=== PATIENT | female | born 1950 | race African-American/Black ===

== ENCOUNTER → 2019-05-03 | Outpatient (CLI) | payer MEDICARE, MEDICAID | END | disposition home or self-care (01) | LOC: MRI 10:31 | DX: G31.89 Other specified degenerative diseases of nervous system (principal); R90.82 White matter disease, unspecified | CPT/HCPCS: 70551 ==

== ENCOUNTER 2020-02-10 21:48 | Inpatient (IN) | payer MEDICARE, MEDICAID ==
[~2020-02-10] VITALS: Ht 157.5 cm; Wt 125.3 kg
[2020-02-10] MEDS ORDERED: ONDANSETRON HCL 4MG/2ML INJ IV STA (22:20)
[2020-02-10] MEDS ORDERED: SODIUM CHLORIDE 0.9% 1,000 ML IV ONE (22:20)
[2020-02-10 22:42] LABS: BG BASE EXCESS 1.4 mmol/L (-2.0-2.0); BG CARBOXYHEMOGLOBIN 0.7 % (0.5-1.5); BG DEOXYHEMOGLOBIN 2.9 % (0.0-5.0); BG FRACTION INSPIRED OXYGEN 75; BG HCO3 ACT 30.4 mmol/L (22.0-26.0); BG METHEMOGLOBIN 0.3 % (0.0-1.5); BG OXYGEN SATURATION 97.1 % (92.0-98.5); BG OXYHEMOGLOBIN 96.1 % (94.0-97.0); BG PCO2 74.3 mmHg (35.0-45.0); BG PO2 106.1 mmHg (75.0-100.0); BG SAMPLE SITE RIGHT RADIAL; BG TOTAL HEMOGLOBIN 10.8 g/dL (12.0-18.0); BG VENT MODE PARTIAL NRB
[2020-02-10] MEDS ORDERED: PROPOFOL 10MG/ML 100ML 100 ML IV ONE (23:30)
[2020-02-10] MEDS ORDERED: VECURONIUM BROMIDE 10 MG/VIAL IV ONE (23:30)
[2020-02-10] MEDS ORDERED: ETOMIDATE 2MG/ML 10ML VIAL IV ONE (23:30)
[2020-02-10 23:39] LABS: BASOPHILS % 0.5 % (0.0-2.0); HEMATOCRIT. 31.9 % (36.0-48.0); HEMOGLOBIN. 10.3 g/dL (12.0-16.0); LYMPHOCYTES % 26.9 % (20.0-50.0); MEAN CORPUSCULAR HEMOGLOBIN 32.4 pg (28.0-32.0); MEAN CORPUSCULAR VOLUME 100.3 fL (81.0-99.0); MEAN PLATELET VOLUME 8.2 fl (7.4-10.4); MONOCYTES % 4.5 % (2.0-8.0); NEUTROPHILS % 67.1 % (40.0-76.0); PLATELET 274 x1000/uL (130-400); RED BLOOD CELL COUNT 3.18 mill/uL (4.2-5.4); RED CELL DISTRIBUTION WIDTH 16.5 % (11.6-14.6)
[2020-02-10 23:47] LABS: CHLORIDE 104 mEq/L (98-107)
[2020-02-11] MEDS ORDERED: KETAMINE HCL 50 MG/ML 10ML ONE (00:09)
[2020-02-11] MEDS ORDERED: ETOMIDATE 2MG/ML 10ML VIAL IV ONE (00:13)
[2020-02-11] MEDS ORDERED: VECURONIUM BROMIDE 10 MG/VIAL IV ONE (00:13)
[2020-02-11] MEDS ORDERED: ONDANSETRON HCL 4MG/2ML INJ IV STA (00:48)
[2020-02-11] MEDS ORDERED: AZITHROMYCIN 500 MG in DEXT 5% WATER 250 ML IV ONE (01:00)
[2020-02-11] MEDS ORDERED: CEFTRIAXONE 1 G PREMIX 50 ML IV ONE (01:00)
[2020-02-11] MEDS ORDERED: KETAMINE HCL 50 MG/ML 10ML IV ONE (01:00)
[2020-02-11 02:01] LABS: BG BASE EXCESS 1.4 mmol/L (-2.0-2.0); BG CARBOXYHEMOGLOBIN 0.2 % (0.5-1.5); BG DEOXYHEMOGLOBIN 1.5 % (0.0-5.0); BG FRACTION INSPIRED OXYGEN 100; BG HCO3 ACT 26.9 mmol/L (22.0-26.0); BG METHEMOGLOBIN 0.3 % (0.0-1.5); BG OXYGEN SATURATION 98.5 % (92.0-98.5); BG PCO2 46.7 mmHg (35.0-45.0); BG PH 7.379 (7.350-7.450); BG PO2 131.6 mmHg (75.0-100.0); BG SAMPLE SITE RIGHT RADIAL; BG TIDAL VOLUME(mL) 500 mL; BG TOTAL HEMOGLOBIN 11.9 g/dL (12.0-18.0); BG VENT MODE VENT - A/C; BG VENT RATE 16 set
[2020-02-11] MEDS ORDERED: PROPOFOL 10MG/ML 100ML 100 ML IV PRN (03:00)
[2020-02-11] MEDS ORDERED: PROPOFOL 10MG/ML 100ML 100 ML IV ONE (03:00)
[2020-02-11] MEDS ORDERED: ONDANSETRON HCL 4MG/2ML INJ IV PRN (08:45)
[2020-02-11] MEDS ORDERED: ACETAMINOPHEN 325MG TABLET PO PRN (08:45)
[2020-02-11 12:56] LABS: BASOPHILS % 0.6 % (0.0-2.0); HEMOGLOBIN. 10.1 g/dL (12.0-16.0); LYMPHOCYTES % 25.3 % (20.0-50.0); MEAN CORPUSCULAR HEMOGLOBIN 32.3 pg (28.0-32.0); MEAN CORPUSCULAR VOLUME 99.2 fL (81.0-99.0); MEAN PLATELET VOLUME 8.5 fl (7.4-10.4); MONOCYTES % 6.7 % (2.0-8.0); NEUTROPHILS % 65.4 % (40.0-76.0); PLATELET 221 x1000/uL (130-400); RED BLOOD CELL COUNT 3.13 mill/uL (4.2-5.4); RED CELL DISTRIBUTION WIDTH 16.6 % (11.6-14.6)
[2020-02-11 13:04] LABS: CHLORIDE 105 mEq/L (98-107)
[2020-02-11] MEDS: SODIUM CHLORIDE 0.9% 1,000 ML IV SCH (13:59)
[2020-02-11] MEDS ORDERED: ENOXAPARIN 40MG/0.4ML SYR SUBCUT SCH (14:00)
[2020-02-11] MEDS ORDERED: FUROSEMIDE 40MG/4ML VIAL IVP SCH (14:00)
[2020-02-11] MEDS: BLOOD SUGAR DIAGNOSTIC STRIP TEST SCH (20:14)
[2020-02-11] MEDS: INSULIN LISPRO 100 UNITS/ML SUBCUT SCH ×2 (20:15→21:00)
[2020-02-11] MEDS: DEXTROSE 50% WATER 50ML SYRINGE IV PRN (21:08)
[2020-02-11 21:28] LABS: CREATINE KINASE 40 IU/L (26-192)
[2020-02-11 21:29] LABS: CREATINE KINASE MB FRACTION < 1.0 ng/mL (0.5-3.6)
[2020-02-12] MEDS ORDERED: PROPOFOL 10MG/ML 100ML 100 ML IV PRN (03:45)
[2020-02-12] MEDS: DEXTROSE 50% WATER 50ML SYRINGE IV PRN (04:43)
[2020-02-12] MEDS: AZITHROMYCIN 500 MG in DEXT 5% WATER 250 ML IV SCH (04:59)
[2020-02-12] MEDS: INSULIN LISPRO 100 UNITS/ML SUBCUT SCH ×3 (08:20→17:11)
[2020-02-12] MEDS: BLOOD SUGAR DIAGNOSTIC STRIP TEST SCH ×3 (08:43→17:11)
[2020-02-12] MEDS: SODIUM CHLORIDE 0.9% 1,000 ML IV SCH (08:44)
[2020-02-12] MEDS ORDERED: CEFTRIAXONE 1 G PREMIX 50 ML IV SCH (09:00)
[2020-02-12 09:17] LABS: BASOPHILS % 0.7 % (0.0-2.0); EOSINOPHILS % 4.3 % (0.0-5.0); HEMATOCRIT. 29.9 % (36.0-48.0); HEMOGLOBIN. 10.1 g/dL (12.0-16.0); LYMPHOCYTES % 17.8 % (20.0-50.0); MEAN CORPUSCULAR HEMOGLOBIN 32.9 pg (28.0-32.0); MEAN CORPUSCULAR VOLUME 97.9 fL (81.0-99.0); MEAN PLATELET VOLUME 8.7 fl (7.4-10.4); MONOCYTES % 4.5 % (2.0-8.0); NEUTROPHILS % 72.7 % (40.0-76.0); PLATELET 242 x1000/uL (130-400); RED BLOOD CELL COUNT 3.05 mill/uL (4.2-5.4)
[2020-02-12] MEDS ORDERED: ENOXAPARIN 120MG/0.8ML SYR SUBCUT NR (15:00)
[2020-02-13] VITALS (23 sets, daily range): BP systolic 95–137; BP diastolic 40–79
[2020-02-13] MEDS ORDERED: NOREPINEPHRINE 4MG/250ML PMX 250 ML IV ONE (00:27)
[2020-02-13] MEDS: BLOOD SUGAR DIAGNOSTIC STRIP TEST SCH ×6 (03:27→21:00)
[2020-02-13 05:31] LABS: BASOPHILS % 0.8 % (0.0-2.0); EOSINOPHILS % 3.9 % (0.0-5.0); HEMATOCRIT. 30.3 % (36.0-48.0); HEMOGLOBIN. 9.9 g/dL (12.0-16.0); LYMPHOCYTES % 17.3 % (20.0-50.0); MEAN CORPUSCULAR HEMOGLOBIN 32.3 pg (28.0-32.0); MEAN CORPUSCULAR VOLUME 98.6 fL (81.0-99.0); MEAN PLATELET VOLUME 8.8 fl (7.4-10.4); MONOCYTES % 3.9 % (2.0-8.0); NEUTROPHILS % 74.1 % (40.0-76.0); PLATELET 252 x1000/uL (130-400); RED BLOOD CELL COUNT 3.07 mill/uL (4.2-5.4); RED CELL DISTRIBUTION WIDTH 16.3 % (11.6-14.6)
[2020-02-13 05:36] LABS: PROTHROMBIN TIME 10.7 sec (9.6-11.0)
[2020-02-13] MEDS: AZITHROMYCIN 500 MG in DEXT 5% WATER 250 ML IV SCH (05:41)
[2020-02-13] MEDS ORDERED: CEFTRIAXONE 1 G PREMIX 50 ML IV SCH (09:00)
[2020-02-13] MEDS ORDERED: CEFTRIAXONE 1 G PREMIX 50 ML IV ONE (09:00)
[2020-02-13] MEDS: PROPOFOL 10MG/ML 100ML 100 ML IV PRN ×4 (09:21→20:20)
[2020-02-13] MEDS: INSULIN LISPRO 100 UNITS/ML SUBCUT SCH ×5 (10:00→21:00)
[2020-02-13] MEDS: SODIUM CHLORIDE 0.9% 1,000 ML IV SCH (10:00)
[2020-02-13 11:53] LABS: CLARITY URINE TURBID (CLEAR); COLOR URINE YELLOW (YELLOW); KETONES URINE TRACE (NEGATIVE); LEUKOCYTE ESTERASE URINE 3+ (NEGATIVE); NITRITE URINE NEGATIVE (NEGATIVE); OCCULT BLOOD URINE 1+ (NEGATIVE); PROTEIN URINE 2+ (NEGATIVE); SPECIFIC GRAVITY URINE 1.014 (1.005-1.030)
[2020-02-13] MEDS ORDERED: ENOXAPARIN 120MG/0.8ML SYR SUBCUT SCH (16:00)
[2020-02-13] MEDS: ENOXAPARIN 40MG/0.4ML SYR SUBCUT SCH (18:24)
[2020-02-14] VITALS (78 sets, daily range): BP systolic 109–157; BP diastolic 49–98
[2020-02-14] MEDS: PROPOFOL 10MG/ML 100ML 100 ML IV PRN ×5 (00:28→22:10)
[2020-02-14] MEDS: SODIUM CHLORIDE 0.9% 1,000 ML IV SCH ×2 (02:00→21:28)
[2020-02-14] MEDS ORDERED: INSULIN LISPRO 100 UNITS/ML SUBCUT SCH (08:00)
[2020-02-14] MEDS ORDERED: BLOOD SUGAR DIAGNOSTIC STRIP TEST SCH (08:00)
[2020-02-14] MEDS: IPRATROPIUM/ALBUTEROL 0.5-3(2.5)MG/3ML NEB NEB PRN ×2 (08:03→13:22)
[2020-02-14 08:41] LABS: BG BASE EXCESS -4.1 mmol/L (-2.0-2.0); BG DEOXYHEMOGLOBIN 1.4 % (0.0-5.0); BG FRACTION INSPIRED OXYGEN 80; BG HCO3 ACT 22.3 mmol/L (22.0-26.0); BG METHEMOGLOBIN 0.3 % (0.0-1.5); BG OXYGEN SATURATION 98.6 % (92.0-98.5); BG OXYHEMOGLOBIN 98.3 % (94.0-97.0); BG PH 7.294 (7.350-7.450); BG PO2 144.3 mmHg (75.0-100.0); BG SAMPLE SITE LEFT BRACHIAL; BG TIDAL VOLUME(mL) 500 mL; BG TOTAL HEMOGLOBIN 9.8 g/dL (12.0-18.0); BG VENT MODE VENT - A/C; BG VENT RATE 16 set
[2020-02-14 09:30] LABS: BASOPHILS % 0.7 % (0.0-2.0); EOSINOPHILS % 5.1 % (0.0-5.0); HEMATOCRIT. 28.4 % (36.0-48.0); HEMOGLOBIN. 9.3 g/dL (12.0-16.0); LYMPHOCYTES % 15.8 % (20.0-50.0); MEAN CORPUSCULAR HEMOGLOBIN 32.3 pg (28.0-32.0); MEAN CORPUSCULAR VOLUME 98.8 fL (81.0-99.0); MEAN PLATELET VOLUME 8.6 fl (7.4-10.4); MONOCYTES % 5.6 % (2.0-8.0); NEUTROPHILS % 72.8 % (40.0-76.0); PLATELET 236 x1000/uL (130-400); RED BLOOD CELL COUNT 2.87 mill/uL (4.2-5.4); RED CELL DISTRIBUTION WIDTH 16.2 % (11.6-14.6)
[2020-02-14] MEDS: AZITHROMYCIN 500 MG in DEXT 5% WATER 250 ML IV SCH (09:53)
[2020-02-14] MEDS ORDERED: LIDOCAINE HCL/PF 1% 2ML VIAL ONE (09:53)
[2020-02-14] MEDS: ENOXAPARIN 40MG/0.4ML SYR SUBCUT SCH (09:54)
[2020-02-14 10:20] LABS: BG BASE EXCESS -5.4 mmol/L (-2.0-2.0); BG CARBOXYHEMOGLOBIN 0.3 % (0.5-1.5); BG DEOXYHEMOGLOBIN 1.2 % (0.0-5.0); BG METHEMOGLOBIN 0.1 % (0.0-1.5); BG OXYGEN SATURATION 98.8 % (92.0-98.5); BG OXYHEMOGLOBIN 98.4 % (94.0-97.0); BG PCO2 38.3 mmHg (35.0-45.0); BG PH 7.335 (7.350-7.450); BG PO2 156.2 mmHg (75.0-100.0); BG SAMPLE SITE RIGHT RADIAL; BG TIDAL VOLUME(mL) 550 mL; BG TOTAL HEMOGLOBIN 10.2 g/dL (12.0-18.0); BG VENT MODE VENT - A/C; BG VENT RATE 20 set
[2020-02-14] MEDS ORDERED: SODIUM POLYSTYRENE SULFONATE 15 G/60 ML BOT PO NR (11:00)
[2020-02-14] MEDS: BLOOD SUGAR DIAGNOSTIC STRIP TEST SCH ×3 (11:34→23:28)
[2020-02-14] MEDS: INSULIN LISPRO 100 UNITS/ML SUBCUT SCH ×3 (11:34→23:28)
[2020-02-14] MEDS: CITRIC ACID/SODIUM CITRATE SOLN 30ML UDC PO SCH ×2 (12:52→18:23)
[2020-02-14] MEDS: CEFTRIAXONE 1 G PREMIX 50 ML IV SCH (12:52)
[2020-02-14] MEDS ORDERED: FUROSEMIDE 40MG/4ML VIAL IVP NR (18:00)
[2020-02-14] MEDS ORDERED: METHYLPREDNISOLONE SOD SUCC 125 MG/2 ML VIAL IV NR (18:00)
[2020-02-14] MEDS: PANTOPRAZOLE SODIUM 40 MG/VIAL IV SCH (21:28)
[2020-02-15] VITALS (46 sets, daily range): BP systolic 123–169; BP diastolic 50–89
[2020-02-15] MEDS: PROPOFOL 10MG/ML 100ML 100 ML IV PRN ×7 (01:00→21:49)
[2020-02-15] MEDS: METHYLPREDNISOLONE SOD SUCC 40 MG/ML VIAL IV SCH ×3 (02:04→17:25)
[2020-02-15] MEDS: IPRATROPIUM/ALBUTEROL 0.5-3(2.5)MG/3ML NEB NEB PRN ×3 (04:25→14:30)
[2020-02-15] MEDS: BLOOD SUGAR DIAGNOSTIC STRIP TEST SCH ×4 (05:05→23:38)
[2020-02-15] MEDS: INSULIN LISPRO 100 UNITS/ML SUBCUT SCH ×4 (06:00→23:40)
[2020-02-15 06:07] LABS: BASOPHILS % 0.3 % (0.0-2.0); HEMATOCRIT. 28.1 % (36.0-48.0); HEMOGLOBIN. 9.4 g/dL (12.0-16.0); LYMPHOCYTES % 9.4 % (20.0-50.0); MEAN CORPUSCULAR HEMOGLOBIN 32.5 pg (28.0-32.0); MEAN CORPUSCULAR VOLUME 97.5 fL (81.0-99.0); MEAN PLATELET VOLUME 9.2 fl (7.4-10.4); MONOCYTES % 0.6 % (2.0-8.0); NEUTROPHILS % 89.7 % (40.0-76.0); PLATELET 240 x1000/uL (130-400); RED BLOOD CELL COUNT 2.88 mill/uL (4.2-5.4)
[2020-02-15] MEDS: PANTOPRAZOLE SODIUM 40 MG/VIAL IV SCH (09:11)
[2020-02-15] MEDS: ENOXAPARIN 40MG/0.4ML SYR SUBCUT SCH (09:11)
[2020-02-15] MEDS: CITRIC ACID/SODIUM CITRATE SOLN 30ML UDC PO SCH (09:11)
[2020-02-15 09:15] LABS: BG BASE EXCESS -3.4 mmol/L (-2.0-2.0); BG CARBOXYHEMOGLOBIN 0.4 % (0.5-1.5); BG DEOXYHEMOGLOBIN 3.5 % (0.0-5.0); BG FRACTION INSPIRED OXYGEN 50; BG HCO3 ACT 21.4 mmol/L (22.0-26.0); BG METHEMOGLOBIN 0.3 % (0.0-1.5); BG OXYGEN SATURATION 96.5 % (92.0-98.5); BG OXYHEMOGLOBIN 95.8 % (94.0-97.0); BG PCO2 37.2 mmHg (35.0-45.0); BG PH 7.377 (7.350-7.450); BG PO2 86.8 mmHg (75.0-100.0); BG SAMPLE SITE RIGHT RADIAL; BG TIDAL VOLUME(mL) 550 mL; BG TOTAL HEMOGLOBIN 9.9 g/dL (12.0-18.0); BG VENT MODE VENT - A/C; BG VENT RATE 20 set
[2020-02-15] MEDS: AZITHROMYCIN 500 MG in DEXT 5% WATER 250 ML IV SCH (09:16)
[2020-02-15] MEDS: CEFTRIAXONE 1 G PREMIX 50 ML IV SCH (11:00)
[2020-02-15] MEDS ORDERED: FUROSEMIDE 40MG/4ML VIAL IVP NR (18:00)
[2020-02-16] VITALS (47 sets, daily range): BP systolic 129–165; BP diastolic 62–112
[2020-02-16] MEDS: HYDRALAZINE 20MG/ML VIAL IV PRN ×2 (00:28→11:17)
[2020-02-16] MEDS: IPRATROPIUM/ALBUTEROL 0.5-3(2.5)MG/3ML NEB NEB PRN (00:44)
[2020-02-16] MEDS: PROPOFOL 10MG/ML 100ML 100 ML IV PRN ×5 (00:54→10:59)
[2020-02-16] MEDS: METHYLPREDNISOLONE SOD SUCC 40 MG/ML VIAL IV SCH ×3 (01:42→17:21)
[2020-02-16] MEDS: BLOOD SUGAR DIAGNOSTIC STRIP TEST SCH ×4 (05:17→23:19)
[2020-02-16] MEDS: INSULIN LISPRO 100 UNITS/ML SUBCUT SCH ×4 (05:18→23:20)
[2020-02-16 06:24] LABS: BASOPHILS % 0.2 % (0.0-2.0); HEMATOCRIT. 26.9 % (36.0-48.0); HEMOGLOBIN. 9.1 g/dL (12.0-16.0); LYMPHOCYTES % 10.4 % (20.0-50.0); MEAN CORPUSCULAR HEMOGLOBIN 32.8 pg (28.0-32.0); NEUTROPHILS % 86.4 % (40.0-76.0); PLATELET 252 x1000/uL (130-400); RED BLOOD CELL COUNT 2.77 mill/uL (4.2-5.4); RED CELL DISTRIBUTION WIDTH 16.6 % (11.6-14.6)
[2020-02-16] MEDS ORDERED: POTASSIUM CHLORIDE 20MEQ/PACKET GT SCH (08:00)
[2020-02-16] MEDS: AZITHROMYCIN 500 MG in DEXT 5% WATER 250 ML IV SCH (08:59)
[2020-02-16] MEDS: PANTOPRAZOLE SODIUM 40 MG/VIAL IV SCH (08:59)
[2020-02-16] MEDS: ENOXAPARIN 40MG/0.4ML SYR SUBCUT SCH (08:59)
[2020-02-16] MEDS: CEFTRIAXONE 1 G PREMIX 50 ML IV SCH (10:44)
[2020-02-16] MEDS: HALOPERIDOL LACTATE 5MG/ML VIAL IM PRN ×2 (13:16→23:20)
[2020-02-16 16:04] LABS: BG CARBOXYHEMOGLOBIN 0.3 % (0.5-1.5); BG DEOXYHEMOGLOBIN 6.9 % (0.0-5.0); BG FRACTION INSPIRED OXYGEN 40; BG HCO3 ACT 22.8 mmol/L (22.0-26.0); BG METHEMOGLOBIN 0.4 % (0.0-1.5); BG OXYGEN SATURATION 93.1 % (92.0-98.5); BG OXYHEMOGLOBIN 92.4 % (94.0-97.0); BG PH 7.332 (7.350-7.450); BG PO2 75.3 mmHg (75.0-100.0); BG PRESSURE SUPPORT 10; BG SAMPLE SITE RIGHT RADIAL; BG TOTAL HEMOGLOBIN 10.8 g/dL (12.0-18.0); BG VENT MODE VENT - CPAP
[2020-02-16] MEDS ORDERED: FUROSEMIDE 40MG/4ML VIAL IVP NR (16:45)
[2020-02-17] VITALS (48 sets, daily range): BP systolic 139–199; BP diastolic 67–99
[2020-02-17] MEDS: METHYLPREDNISOLONE SOD SUCC 40 MG/ML VIAL IV SCH ×3 (01:16→17:44)
[2020-02-17] MEDS: HYDRALAZINE 20MG/ML VIAL IV PRN ×3 (01:16→15:20)
[2020-02-17] MEDS: BLOOD SUGAR DIAGNOSTIC STRIP TEST SCH ×3 (05:10→17:05)
[2020-02-17] MEDS: INSULIN LISPRO 100 UNITS/ML SUBCUT SCH ×3 (05:17→17:46)
[2020-02-17 05:40] LABS: BASOPHILS % 0.1 % (0.0-2.0); HEMATOCRIT. 26.2 % (36.0-48.0); HEMOGLOBIN. 8.7 g/dL (12.0-16.0); MEAN CORPUSCULAR HEMOGLOBIN 32.5 pg (28.0-32.0); MEAN CORPUSCULAR VOLUME 97.5 fL (81.0-99.0); MONOCYTES % 2.6 % (2.0-8.0); NEUTROPHILS % 87.3 % (40.0-76.0); PLATELET 256 x1000/uL (130-400); RED BLOOD CELL COUNT 2.69 mill/uL (4.2-5.4); RED CELL DISTRIBUTION WIDTH 16.7 % (11.6-14.6)
[2020-02-17 08:04] LABS: BG BASE EXCESS -1.5 mmol/L (-2.0-2.0); BG CARBOXYHEMOGLOBIN 0.3 % (0.5-1.5); BG DEOXYHEMOGLOBIN 2.9 % (0.0-5.0); BG FRACTION INSPIRED OXYGEN 40; BG HCO3 ACT 22.4 mmol/L (22.0-26.0); BG METHEMOGLOBIN 0.2 % (0.0-1.5); BG OXYGEN SATURATION 97.1 % (92.0-98.5); BG OXYHEMOGLOBIN 96.6 % (94.0-97.0); BG PCO2 34.6 mmHg (35.0-45.0); BG PH 7.429 (7.350-7.450); BG PO2 93.9 mmHg (75.0-100.0); BG PRESSURE SUPPORT 10; BG SAMPLE SITE RIGHT RADIAL; BG TIDAL VOLUME(mL) 550 mL; BG TOTAL HEMOGLOBIN 9.5 g/dL (12.0-18.0); BG VENT MODE VENT - SIMV; BG VENT RATE 14 set
[2020-02-17] MEDS: PANTOPRAZOLE SODIUM 40 MG/VIAL IV SCH (08:51)
[2020-02-17] MEDS: ENOXAPARIN 40MG/0.4ML SYR SUBCUT SCH (08:51)
[2020-02-17] MEDS ORDERED: LOSARTAN POTASSIUM 50 MG TABLET PO SCH (09:00)
[2020-02-17] MEDS: AZITHROMYCIN 500 MG in DEXT 5% WATER 250 ML IV SCH (10:39)
[2020-02-17] MEDS: IPRATROPIUM/ALBUTEROL 0.5-3(2.5)MG/3ML NEB NEB PRN ×2 (12:19→16:16)
[2020-02-17] MEDS: HALOPERIDOL LACTATE 5MG/ML VIAL IM PRN (13:16)
[2020-02-17] MEDS ORDERED: HYDRALAZINE HCL 50MG TABLET PO SCH (14:16)
[2020-02-17] MEDS ORDERED: CLONIDINE 0.1MG TABLET PO NR (17:15)
[2020-02-17 17:52] LABS: BG BASE EXCESS -2.9 mmol/L (-2.0-2.0); BG CARBOXYHEMOGLOBIN 0.6 % (0.5-1.5); BG DEOXYHEMOGLOBIN 6.4 % (0.0-5.0); BG FRACTION INSPIRED OXYGEN 40; BG HCO3 ACT 22.1 mmol/L (22.0-26.0); BG METHEMOGLOBIN 0.8 % (0.0-1.5); BG OXYHEMOGLOBIN 92.2 % (94.0-97.0); BG PCO2 39.7 mmHg (35.0-45.0); BG PH 7.364 (7.350-7.450); BG PO2 73.7 mmHg (75.0-100.0); BG PRESSURE SUPPORT 8; BG SAMPLE SITE RIGHT RADIAL; BG TOTAL HEMOGLOBIN 9.4 g/dL (12.0-18.0); BG VENT MODE VENT - CPAP
[2020-02-17] MEDS: CLONIDINE 0.1MG TABLET PO SCH (21:11)
[2020-02-17] MEDS: HYDRALAZINE HCL 100MG TABLET PO SCH (21:11)
[2020-02-17] MEDS: AMLODIPINE 5MG TABLET PO SCH (21:11)
[2020-02-18] VITALS (47 sets, daily range): BP systolic 115–180; BP diastolic 32–114
[2020-02-18] MEDS: BLOOD SUGAR DIAGNOSTIC STRIP TEST SCH ×4 (00:24→17:38)
[2020-02-18] MEDS: INSULIN LISPRO 100 UNITS/ML SUBCUT SCH ×4 (00:29→17:58)
[2020-02-18] MEDS: CLONIDINE 0.1MG TABLET PO SCH (05:42)
[2020-02-18 06:26] LABS: HEMATOCRIT. 27.1 % (36.0-48.0); HEMOGLOBIN. 9.1 g/dL (12.0-16.0); MEAN CORPUSCULAR HEMOGLOBIN 32.4 pg (28.0-32.0); MEAN CORPUSCULAR VOLUME 97.1 fL (81.0-99.0); MEAN PLATELET VOLUME 8.9 fl (7.4-10.4); PLATELET 244 x1000/uL (130-400); RED CELL DISTRIBUTION WIDTH 16.6 % (11.6-14.6)
[2020-02-18] MEDS: IPRATROPIUM/ALBUTEROL 0.5-3(2.5)MG/3ML NEB NEB PRN ×4 (08:14→21:31)
[2020-02-18] MEDS ORDERED: FUROSEMIDE 40MG/4ML VIAL IVP NR (08:30)
[2020-02-18] MEDS: AMLODIPINE 5MG TABLET PO SCH ×2 (09:25→20:41)
[2020-02-18] MEDS: PANTOPRAZOLE SODIUM 40 MG/VIAL IV SCH (09:26)
[2020-02-18] MEDS: ENOXAPARIN 40MG/0.4ML SYR SUBCUT SCH (09:26)
[2020-02-18] MEDS: HYDRALAZINE HCL 100MG TABLET PO SCH ×3 (09:28→21:49)
[2020-02-18 09:44] LABS: BG BASE EXCESS 0.4 mmol/L (-2.0-2.0); BG CARBOXYHEMOGLOBIN 0.3 % (0.5-1.5); BG DEOXYHEMOGLOBIN 3.8 % (0.0-5.0); BG FRACTION INSPIRED OXYGEN 45; BG HCO3 ACT 26.1 mmol/L (22.0-26.0); BG METHEMOGLOBIN 0.1 % (0.0-1.5); BG OXYGEN SATURATION 96.2 % (92.0-98.5); BG OXYHEMOGLOBIN 95.8 % (94.0-97.0); BG PCO2 46.9 mmHg (35.0-45.0); BG PH 7.363 (7.350-7.450); BG PO2 89.1 mmHg (75.0-100.0); BG PRESSURE SUPPORT 8; BG SAMPLE SITE RIGHT RADIAL; BG TOTAL HEMOGLOBIN 9.5 g/dL (12.0-18.0); BG VENT MODE VENT - CPAP
[2020-02-18] MEDS: CLONIDINE 0.2MG TABLET PO SCH ×2 (13:23→19:42)
[2020-02-18 13:54] LABS: PLATELET ESTIMATE NORMAL
[2020-02-18] MEDS ORDERED: AMIODARONE HCL 150 MG in DEXT 5% WATER 100 ML IV NR (20:15)
[2020-02-18] MEDS ORDERED: DIGOXIN 500MCG/2ML AMP IV NR (20:30)
[2020-02-18] MEDS ORDERED: DIGOXIN 500MCG/2ML AMP IV ONE (21:00)
[2020-02-18] MEDS: AMIODARONE HCL 900 MG in DEXT 5% WATER 482 ML IV PRN (21:51)
[2020-02-18] MEDS: HALOPERIDOL LACTATE 5MG/ML VIAL IM PRN (22:33)
[2020-02-18] MEDS ORDERED: DEXT 5%/0.45% NACL 1000ML 1,000 ML IV SCH (23:30)
[2020-02-19] VITALS (55 sets, daily range): BP systolic 124–204; BP diastolic 53–112
[2020-02-19] MEDS: HYDRALAZINE 20MG/ML VIAL IV PRN ×2 (00:14→10:12)
[2020-02-19] MEDS ORDERED: DIGOXIN 500MCG/2ML AMP IV ONE (00:30)
[2020-02-19 04:59] LABS: BASOPHILS % 0.1 % (0.0-2.0); EOSINOPHILS % 0.1 % (0.0-5.0); HEMATOCRIT. 29.4 % (36.0-48.0); HEMOGLOBIN. 9.8 g/dL (12.0-16.0); LYMPHOCYTES % 13.1 % (20.0-50.0); MEAN CORPUSCULAR HEMOGLOBIN 32.7 pg (28.0-32.0); MEAN CORPUSCULAR VOLUME 98.5 fL (81.0-99.0); MEAN PLATELET VOLUME 8.6 fl (7.4-10.4); MONOCYTES % 2.9 % (2.0-8.0); NEUTROPHILS % 83.8 % (40.0-76.0); PLATELET 237 x1000/uL (130-400); RED BLOOD CELL COUNT 2.98 mill/uL (4.2-5.4); RED CELL DISTRIBUTION WIDTH 16.6 % (11.6-14.6)
[2020-02-19 05:21] LABS: PHOSPHORUS 4.5 mg/dL (2.5-4.9)
[2020-02-19] MEDS: CLONIDINE 0.2MG TABLET PO SCH ×3 (05:39→21:42)
[2020-02-19] MEDS: BLOOD SUGAR DIAGNOSTIC STRIP TEST SCH ×6 (05:39→20:21)
[2020-02-19] MEDS: HYDRALAZINE HCL 100MG TABLET PO SCH ×3 (05:39→20:22)
[2020-02-19] MEDS: INSULIN LISPRO 100 UNITS/ML SUBCUT SCH ×6 (05:48→20:21)
[2020-02-19] MEDS ORDERED: FUROSEMIDE 40MG/4ML VIAL IV SCH (08:30)
[2020-02-19] MEDS: IPRATROPIUM/ALBUTEROL 0.5-3(2.5)MG/3ML NEB NEB PRN ×3 (09:09→17:34)
[2020-02-19] MEDS: ENOXAPARIN 40MG/0.4ML SYR SUBCUT SCH (09:14)
[2020-02-19] MEDS: AMLODIPINE 5MG TABLET PO SCH ×2 (09:14→20:22)
[2020-02-19] MEDS: PANTOPRAZOLE SODIUM 40 MG/VIAL IV SCH (09:16)
[2020-02-19] MEDS: METHYLPREDNISOLONE SOD SUCC 40 MG/ML VIAL IV SCH (17:22)
[2020-02-19] MEDS: IPRATROPIUM BROMIDE (0.02%) 0.5MG/2.5ML NEB HHN SCH (20:30)
[2020-02-19] MEDS: AMIODARONE HCL 900 MG in DEXT 5% WATER 482 ML IV PRN (21:41)
[2020-02-19] MEDS ORDERED: ACETYLCYSTEINE 100MG/ML 10% VIAL 4ML INH SCH (22:00)
[2020-02-20] VITALS (54 sets, daily range): BP systolic 108–211; BP diastolic 56–105
[2020-02-20] MEDS: ACETYLCYSTEINE 200MG/ML 20% VIAL 4ML INH SCH ×3 (00:30→16:06)
[2020-02-20] MEDS: IPRATROPIUM BROMIDE (0.02%) 0.5MG/2.5ML NEB HHN SCH ×6 (00:30→20:14)
[2020-02-20] MEDS: METHYLPREDNISOLONE SOD SUCC 40 MG/ML VIAL IV SCH ×3 (01:01→17:50)
[2020-02-20] MEDS: HYDRALAZINE 20MG/ML VIAL IV PRN ×2 (01:02→09:36)
[2020-02-20] MEDS: IPRATROPIUM/ALBUTEROL 0.5-3(2.5)MG/3ML NEB NEB PRN (02:01)
[2020-02-20 05:41] LABS: BASOPHILS % 0.1 % (0.0-2.0); HEMOGLOBIN. 9.9 g/dL (12.0-16.0); LYMPHOCYTES % 12.1 % (20.0-50.0); MEAN CORPUSCULAR HEMOGLOBIN 32.4 pg (28.0-32.0); MEAN CORPUSCULAR VOLUME 98.6 fL (81.0-99.0); MEAN PLATELET VOLUME 8.9 fl (7.4-10.4); MONOCYTES % 1.3 % (2.0-8.0); NEUTROPHILS % 86.5 % (40.0-76.0); PLATELET 217 x1000/uL (130-400); RED BLOOD CELL COUNT 3.05 mill/uL (4.2-5.4); RED CELL DISTRIBUTION WIDTH 16.5 % (11.6-14.6)
[2020-02-20] MEDS: HYDRALAZINE HCL 100MG TABLET PO SCH ×3 (06:25→23:11)
[2020-02-20] MEDS: CLONIDINE 0.2MG TABLET PO SCH ×3 (06:25→22:00)
[2020-02-20] MEDS: BLOOD SUGAR DIAGNOSTIC STRIP TEST SCH ×4 (08:28→21:15)
[2020-02-20] MEDS: PANTOPRAZOLE SODIUM 40 MG/VIAL IV SCH (09:36)
[2020-02-20] MEDS: AMLODIPINE 5MG TABLET PO SCH ×2 (09:36→21:14)
[2020-02-20] MEDS: ENOXAPARIN 40MG/0.4ML SYR SUBCUT SCH (09:37)
[2020-02-20] MEDS: INSULIN LISPRO 100 UNITS/ML SUBCUT SCH ×4 (09:38→21:15)
[2020-02-20] MEDS: MINOXIDIL 2.5MG TABLET PO SCH (12:24)
[2020-02-20] MEDS ORDERED: FUROSEMIDE 40MG/4ML VIAL IVP NR (21:00)
[2020-02-21] VITALS (47 sets, daily range): BP systolic 103–162; BP diastolic 52–78
[2020-02-21] MEDS: IPRATROPIUM BROMIDE (0.02%) 0.5MG/2.5ML NEB HHN SCH ×6 (00:13→20:24)
[2020-02-21] MEDS: ACETYLCYSTEINE 200MG/ML 20% VIAL 4ML INH SCH ×2 (00:13→15:17)
[2020-02-21] MEDS: METHYLPREDNISOLONE SOD SUCC 40 MG/ML VIAL IV SCH ×2 (01:59→08:49)
[2020-02-21] MEDS: AMIODARONE HCL 900 MG in DEXT 5% WATER 482 ML IV PRN (04:02)
[2020-02-21] MEDS: CLONIDINE 0.2MG TABLET PO SCH ×3 (05:46→22:41)
[2020-02-21] MEDS: HYDRALAZINE HCL 100MG TABLET PO SCH ×3 (05:46→22:41)
[2020-02-21 05:49] LABS: BASOPHILS % 0.3 % (0.0-2.0); HEMATOCRIT. 29.6 % (36.0-48.0); HEMOGLOBIN. 9.7 g/dL (12.0-16.0); LYMPHOCYTES % 14.5 % (20.0-50.0); MEAN CORPUSCULAR HEMOGLOBIN 32.3 pg (28.0-32.0); MEAN CORPUSCULAR VOLUME 98.8 fL (81.0-99.0); MEAN PLATELET VOLUME 8.9 fl (7.4-10.4); MONOCYTES % 1.9 % (2.0-8.0); NEUTROPHILS % 83.3 % (40.0-76.0); PLATELET 222 x1000/uL (130-400); RED CELL DISTRIBUTION WIDTH 16.4 % (11.6-14.6)
[2020-02-21] MEDS: PANTOPRAZOLE SODIUM 40 MG/VIAL IV SCH (08:47)
[2020-02-21] MEDS: BLOOD SUGAR DIAGNOSTIC STRIP TEST SCH ×4 (08:47→20:51)
[2020-02-21] MEDS: MINOXIDIL 2.5MG TABLET PO SCH (08:47)
[2020-02-21] MEDS: ENOXAPARIN 40MG/0.4ML SYR SUBCUT SCH (08:48)
[2020-02-21] MEDS: AMLODIPINE 5MG TABLET PO SCH ×2 (09:00→20:51)
[2020-02-21] MEDS: INSULIN LISPRO 100 UNITS/ML SUBCUT SCH ×4 (09:06→21:05)
[2020-02-22] VITALS (79 sets, daily range): BP systolic 104–162; BP diastolic 37–84
[2020-02-22] MEDS: IPRATROPIUM BROMIDE (0.02%) 0.5MG/2.5ML NEB HHN SCH ×6 (00:39→16:16)
[2020-02-22] MEDS: ACETYLCYSTEINE 200MG/ML 20% VIAL 4ML INH SCH ×4 (00:40→23:35)
[2020-02-22] MEDS: HYDRALAZINE HCL 100MG TABLET PO SCH ×3 (05:02→21:51)
[2020-02-22] MEDS: CLONIDINE 0.2MG TABLET PO SCH ×3 (05:03→22:00)
[2020-02-22 05:51] LABS: HEMATOCRIT. 28.1 % (36.0-48.0); HEMOGLOBIN. 9.2 g/dL (12.0-16.0); MEAN CORPUSCULAR HEMOGLOBIN 31.9 pg (28.0-32.0); MEAN CORPUSCULAR VOLUME 97.9 fL (81.0-99.0); MEAN PLATELET VOLUME 9.7 fl (7.4-10.4); RED BLOOD CELL COUNT 2.87 mill/uL (4.2-5.4); RED CELL DISTRIBUTION WIDTH 16.3 % (11.6-14.6)
[2020-02-22] MEDS: BLOOD SUGAR DIAGNOSTIC STRIP TEST SCH ×4 (07:50→21:44)
[2020-02-22] MEDS: AMLODIPINE 5MG TABLET PO SCH ×2 (09:31→21:51)
[2020-02-22] MEDS: MINOXIDIL 2.5MG TABLET PO SCH (09:31)
[2020-02-22] MEDS: ENOXAPARIN 40MG/0.4ML SYR SUBCUT SCH (09:31)
[2020-02-22] MEDS: PANTOPRAZOLE SODIUM 40 MG/VIAL IV SCH (09:31)
[2020-02-22] MEDS: INSULIN LISPRO 100 UNITS/ML SUBCUT SCH ×4 (09:32→22:12)
[2020-02-22] MEDS: AMIODARONE HCL 900 MG in DEXT 5% WATER 482 ML IV PRN (09:33)
[2020-02-22] MEDS: SODIUM CHLORIDE 0.45% 1,000 ML IV SCH (09:57)
[2020-02-22] MEDS ORDERED: SODIUM POLYSTYRENE SULFONATE 15 G/60 ML BOT PO NR (10:00)
[2020-02-22 10:37] LABS: PLATELET ESTIMATE NORMAL
[2020-02-22 10:38] LABS: PLATELET 205 x1000/uL (130-400)
[2020-02-22 11:25] LABS: CREATINE KINASE 54 IU/L (26-192)
[2020-02-22] MEDS: IPRATROPIUM/ALBUTEROL 0.5-3(2.5)MG/3ML NEB NEB PRN (23:36)
[2020-02-23] VITALS (67 sets, daily range): BP systolic 94–157; BP diastolic 45–101
[2020-02-23 05:39] LABS: HEMATOCRIT. 26.4 % (36.0-48.0); HEMOGLOBIN. 8.6 g/dL (12.0-16.0); MEAN CORPUSCULAR VOLUME 97.7 fL (81.0-99.0); PLATELET 176 x1000/uL (130-400); RED CELL DISTRIBUTION WIDTH 16.3 % (11.6-14.6)
[2020-02-23] MEDS: HYDRALAZINE HCL 100MG TABLET PO SCH ×4 (06:00→22:00)
[2020-02-23] MEDS: CLONIDINE 0.2MG TABLET PO SCH ×3 (06:00→21:54)
[2020-02-23] MEDS: BLOOD SUGAR DIAGNOSTIC STRIP TEST SCH ×4 (08:17→21:59)
[2020-02-23] MEDS: AMIODARONE HCL 200 MG TABLET PO SCH ×2 (08:24→17:14)
[2020-02-23] MEDS: PANTOPRAZOLE SODIUM 40 MG/VIAL IV SCH (08:24)
[2020-02-23] MEDS: ENOXAPARIN 40MG/0.4ML SYR SUBCUT SCH (08:25)
[2020-02-23] MEDS: MINOXIDIL 2.5MG TABLET PO SCH (08:25)
[2020-02-23] MEDS: ACETYLCYSTEINE 200MG/ML 20% VIAL 4ML INH SCH (08:26)
[2020-02-23] MEDS: INSULIN LISPRO 100 UNITS/ML SUBCUT SCH ×4 (08:27→22:06)
[2020-02-23 08:45] LABS: PLATELET ESTIMATE NORMAL
[2020-02-23] MEDS: SODIUM CHLORIDE 0.45% 1,000 ML IV SCH (08:57)
[2020-02-23] MEDS: AMLODIPINE 5MG TABLET PO SCH ×2 (09:00→21:53)
[2020-02-23] MEDS ORDERED: DOCUSATE SODIUM SUGAR FREE 100MG/10ML UDC PO SCH (11:00)
[2020-02-23] MEDS: IPRATROPIUM BROMIDE (0.02%) 0.5MG/2.5ML NEB HHN SCH ×3 (12:00→21:18)
[2020-02-23] MEDS: ACETYLCYSTEINE 100MG/ML 10% VIAL 4ML INH SCH (16:00)
[2020-02-23 16:26] LABS: CLARITY URINE CLOUDY (CLEAR); COLOR URINE YELLOW (YELLOW); KETONES URINE NEGATIVE (NEGATIVE); LEUKOCYTE ESTERASE URINE 1+ (NEGATIVE); NITRITE URINE NEGATIVE (NEGATIVE); OCCULT BLOOD URINE NEGATIVE (NEGATIVE); PROTEIN URINE 2+ (NEGATIVE); SPECIFIC GRAVITY URINE 1.018 (1.005-1.030); UROBILINOGEN URINE 0.2 E.U./dL (0.2-1.0)
[2020-02-24] VITALS (12 sets, daily range): BP systolic 92–130; BP diastolic 42–65
[2020-02-24] MEDS: IPRATROPIUM BROMIDE (0.02%) 0.5MG/2.5ML NEB HHN SCH ×5 (00:53→21:09)
[2020-02-24] MEDS: ACETYLCYSTEINE 100MG/ML 10% VIAL 4ML INH SCH ×3 (00:54→09:45)
[2020-02-24] MEDS: HYDRALAZINE HCL 100MG TABLET PO SCH ×3 (05:40→21:47)
[2020-02-24] MEDS: CLONIDINE 0.2MG TABLET PO SCH ×3 (05:40→21:47)
[2020-02-24] MEDS: BLOOD SUGAR DIAGNOSTIC STRIP TEST SCH ×4 (06:05→21:00)
[2020-02-24] MEDS: INSULIN LISPRO 100 UNITS/ML SUBCUT SCH ×4 (06:05→22:14)
[2020-02-24] MEDS: PANTOPRAZOLE SODIUM 40 MG/VIAL IV SCH (08:25)
[2020-02-24] MEDS: DOCUSATE SODIUM 250MG CAPSULE PO SCH (08:26)
[2020-02-24] MEDS: MINOXIDIL 2.5MG TABLET PO SCH (08:28)
[2020-02-24] MEDS: AMLODIPINE 5MG TABLET PO SCH (08:28)
[2020-02-24] MEDS: AMIODARONE HCL 200 MG TABLET PO SCH ×2 (08:28→17:10)
[2020-02-24] MEDS: ENOXAPARIN 40MG/0.4ML SYR SUBCUT SCH (08:28)
[2020-02-24 10:46] LABS: BASOPHILS % 0.2 % (0.0-2.0); EOSINOPHILS % 1.3 % (0.0-5.0); HEMATOCRIT. 27.4 % (36.0-48.0); HEMOGLOBIN. 8.9 g/dL (12.0-16.0); LYMPHOCYTES % 31.4 % (20.0-50.0); MEAN CORPUSCULAR HEMOGLOBIN 31.8 pg (28.0-32.0); MEAN CORPUSCULAR VOLUME 98.2 fL (81.0-99.0); MEAN PLATELET VOLUME 9.5 fl (7.4-10.4); MONOCYTES % 5.9 % (2.0-8.0); NEUTROPHILS % 61.2 % (40.0-76.0); PLATELET 165 x1000/uL (130-400); RED BLOOD CELL COUNT 2.79 mill/uL (4.2-5.4); RED CELL DISTRIBUTION WIDTH 16.2 % (11.6-14.6)
[2020-02-24 12:56] LABS: HEPATITIS B SURFACE AB < 3.1 mIU/mL
[2020-02-24 13:05] LABS: HEPATITIS B SURFACE ANTIGEN NEGATIVE
[2020-02-24 13:35] LABS: HEPATITIS A AB IGM NEGATIVE (NEGATIVE)
[2020-02-25] VITALS (12 sets, daily range): BP systolic 107–153; BP diastolic 52–63
[2020-02-25] MEDS: IPRATROPIUM BROMIDE (0.02%) 0.5MG/2.5ML NEB HHN SCH ×6 (01:04→21:31)
[2020-02-25] MEDS: HYDRALAZINE HCL 100MG TABLET PO SCH ×3 (06:00→21:43)
[2020-02-25] MEDS: CLONIDINE 0.2MG TABLET PO SCH ×3 (06:00→21:43)
[2020-02-25] MEDS: INSULIN LISPRO 100 UNITS/ML SUBCUT SCH ×4 (06:36→21:00)
[2020-02-25] MEDS: BLOOD SUGAR DIAGNOSTIC STRIP TEST SCH ×4 (06:36→21:42)
[2020-02-25 07:24] LABS: BASOPHILS % 0.4 % (0.0-2.0); EOSINOPHILS % 1.5 % (0.0-5.0); HEMATOCRIT. 24.9 % (36.0-48.0); HEMOGLOBIN. 8.2 g/dL (12.0-16.0); LYMPHOCYTES % 26.7 % (20.0-50.0); MEAN CORPUSCULAR HEMOGLOBIN 32.2 pg (28.0-32.0); MEAN CORPUSCULAR VOLUME 97.3 fL (81.0-99.0); MEAN PLATELET VOLUME 9.8 fl (7.4-10.4); MONOCYTES % 6.9 % (2.0-8.0); NEUTROPHILS % 64.5 % (40.0-76.0); PLATELET 157 x1000/uL (130-400); RED BLOOD CELL COUNT 2.56 mill/uL (4.2-5.4)
[2020-02-25] MEDS: DOCUSATE SODIUM 250MG CAPSULE PO SCH (09:53)
[2020-02-25] MEDS: FAMOTIDINE 20MG/2ML VIAL IV SCH (09:53)
[2020-02-25] MEDS: AMIODARONE HCL 200 MG TABLET PO SCH ×2 (09:53→17:39)
[2020-02-25] MEDS: ENOXAPARIN 40MG/0.4ML SYR SUBCUT SCH (09:55)
[2020-02-26] VITALS (12 sets, daily range): BP systolic 96–150; BP diastolic 32–65
[2020-02-26] MEDS: IPRATROPIUM BROMIDE (0.02%) 0.5MG/2.5ML NEB HHN SCH ×6 (01:37→21:27)
[2020-02-26] MEDS: HYDRALAZINE HCL 100MG TABLET PO SCH ×3 (06:00→19:59)
[2020-02-26] MEDS: CLONIDINE 0.2MG TABLET PO SCH ×3 (06:00→19:59)
[2020-02-26] MEDS: BLOOD SUGAR DIAGNOSTIC STRIP TEST SCH ×4 (06:47→20:23)
[2020-02-26] MEDS: INSULIN LISPRO 100 UNITS/ML SUBCUT SCH ×4 (06:48→20:24)
[2020-02-26] MEDS: DOCUSATE SODIUM 250MG CAPSULE PO SCH (08:56)
[2020-02-26] MEDS: FAMOTIDINE 20MG/2ML VIAL IV SCH (08:56)
[2020-02-26] MEDS: ENOXAPARIN 40MG/0.4ML SYR SUBCUT SCH (08:56)
[2020-02-26] MEDS: AMIODARONE HCL 200 MG TABLET PO SCH ×2 (08:56→17:50)
[2020-02-26 10:14] LABS: BASOPHILS % 0.5 % (0.0-2.0); EOSINOPHILS % 1.4 % (0.0-5.0); HEMATOCRIT. 23.9 % (36.0-48.0); HEMOGLOBIN. 8.1 g/dL (12.0-16.0); LYMPHOCYTES % 23.9 % (20.0-50.0); MEAN CORPUSCULAR HEMOGLOBIN 32.5 pg (28.0-32.0); MEAN CORPUSCULAR VOLUME 96.5 fL (81.0-99.0); MEAN PLATELET VOLUME 9.5 fl (7.4-10.4); MONOCYTES % 6.6 % (2.0-8.0); NEUTROPHILS % 67.6 % (40.0-76.0); PLATELET 154 x1000/uL (130-400); RED BLOOD CELL COUNT 2.47 mill/uL (4.2-5.4); RED CELL DISTRIBUTION WIDTH 16.6 % (11.6-14.6)
[2020-02-27] VITALS (11 sets, daily range): BP systolic 110–142; BP diastolic 43–73
[2020-02-27] MEDS: IPRATROPIUM BROMIDE (0.02%) 0.5MG/2.5ML NEB HHN SCH ×4 (02:00→22:07)
[2020-02-27] MEDS: CLONIDINE 0.2MG TABLET PO SCH ×3 (05:02→23:07)
[2020-02-27] MEDS: HYDRALAZINE HCL 100MG TABLET PO SCH ×3 (05:02→23:07)
[2020-02-27] MEDS: BLOOD SUGAR DIAGNOSTIC STRIP TEST SCH ×4 (05:34→21:10)
[2020-02-27 07:39] LABS: BASOPHILS % 0.5 % (0.0-2.0); EOSINOPHILS % 1.4 % (0.0-5.0); HEMATOCRIT. 23.8 % (36.0-48.0); HEMOGLOBIN. 7.9 g/dL (12.0-16.0); LYMPHOCYTES % 23.3 % (20.0-50.0); MEAN CORPUSCULAR HEMOGLOBIN 32.5 pg (28.0-32.0); MEAN CORPUSCULAR VOLUME 97.4 fL (81.0-99.0); MEAN PLATELET VOLUME 9.5 fl (7.4-10.4); MONOCYTES % 7.3 % (2.0-8.0); NEUTROPHILS % 67.5 % (40.0-76.0); PLATELET 155 x1000/uL (130-400); RED BLOOD CELL COUNT 2.44 mill/uL (4.2-5.4)
[2020-02-27] MEDS: ENOXAPARIN 40MG/0.4ML SYR SUBCUT SCH (08:28)
[2020-02-27] MEDS: DOCUSATE SODIUM 250MG CAPSULE PO SCH (08:28)
[2020-02-27] MEDS: AMIODARONE HCL 200 MG TABLET PO SCH ×2 (08:28→16:59)
[2020-02-27] MEDS: FAMOTIDINE 20MG/2ML VIAL IV SCH (08:28)
[2020-02-27] MEDS: INSULIN LISPRO 100 UNITS/ML SUBCUT SCH ×4 (08:29→21:00)
[2020-02-27] MEDS ORDERED: MANNITOL 12.5G (25%) VIAL 50ML IV NR (18:00)
[2020-02-27 19:22] LABS: PARTIAL THROMBOPLASTIN TIME 27.8 sec (23.4-31.0); PROTHROMBIN TIME 10.6 sec (9.6-11.0)
[2020-02-28] VITALS (12 sets, daily range): BP systolic 109–151; BP diastolic 45–64
[2020-02-28] MEDS: IPRATROPIUM BROMIDE (0.02%) 0.5MG/2.5ML NEB HHN SCH ×6 (00:40→20:09)
[2020-02-28] MEDS: HYDRALAZINE HCL 100MG TABLET PO SCH ×3 (06:12→22:00)
[2020-02-28] MEDS: CLONIDINE 0.2MG TABLET PO SCH ×3 (06:12→22:00)
[2020-02-28] MEDS: INSULIN LISPRO 100 UNITS/ML SUBCUT SCH ×4 (06:13→21:00)
[2020-02-28] MEDS: BLOOD SUGAR DIAGNOSTIC STRIP TEST SCH ×4 (06:13→21:44)
[2020-02-28] MEDS: FAMOTIDINE 20MG/2ML VIAL IV SCH (08:57)
[2020-02-28] MEDS: AMIODARONE HCL 200 MG TABLET PO SCH ×2 (08:58→17:32)
[2020-02-28] MEDS: ENOXAPARIN 40MG/0.4ML SYR SUBCUT SCH (08:58)
[2020-02-28] MEDS: DOCUSATE SODIUM 250MG CAPSULE PO SCH (08:58)
[2020-02-28 19:17] LABS: BASOPHILS % 0.5 % (0.0-2.0); EOSINOPHILS % 0.9 % (0.0-5.0); HEMATOCRIT. 24.6 % (36.0-48.0); HEMOGLOBIN. 8.3 g/dL (12.0-16.0); MEAN CORPUSCULAR HEMOGLOBIN 32.2 pg (28.0-32.0); MEAN CORPUSCULAR VOLUME 95.8 fL (81.0-99.0); MEAN PLATELET VOLUME 9.5 fl (7.4-10.4); MONOCYTES % 6.3 % (2.0-8.0); NEUTROPHILS % 73.3 % (40.0-76.0); PLATELET 169 x1000/uL (130-400); RED BLOOD CELL COUNT 2.56 mill/uL (4.2-5.4); RED CELL DISTRIBUTION WIDTH 16.1 % (11.6-14.6)
[2020-02-29] VITALS (12 sets, daily range): BP systolic 113–166; BP diastolic 52–89
[2020-02-29] MEDS: IPRATROPIUM BROMIDE (0.02%) 0.5MG/2.5ML NEB HHN SCH ×5 (00:06→20:42)
[2020-02-29] MEDS: CLONIDINE 0.2MG TABLET PO SCH ×3 (06:16→21:05)
[2020-02-29] MEDS: HYDRALAZINE HCL 100MG TABLET PO SCH ×3 (06:16→21:04)
[2020-02-29] MEDS: BLOOD SUGAR DIAGNOSTIC STRIP TEST SCH ×4 (06:26→20:51)
[2020-02-29] MEDS: INSULIN LISPRO 100 UNITS/ML SUBCUT SCH ×4 (06:27→20:51)
[2020-02-29 06:46] LABS: BASOPHILS % 0.5 % (0.0-2.0); EOSINOPHILS % 1.4 % (0.0-5.0); HEMATOCRIT. 23.7 % (36.0-48.0); HEMOGLOBIN. 7.9 g/dL (12.0-16.0); LYMPHOCYTES % 20.8 % (20.0-50.0); MEAN CORPUSCULAR VOLUME 96.2 fL (81.0-99.0); MEAN PLATELET VOLUME 9.7 fl (7.4-10.4); NEUTROPHILS % 68.3 % (40.0-76.0); PLATELET 165 x1000/uL (130-400); RED BLOOD CELL COUNT 2.46 mill/uL (4.2-5.4); RED CELL DISTRIBUTION WIDTH 16.2 % (11.6-14.6)
[2020-02-29] MEDS: FAMOTIDINE 20MG/2ML VIAL IV SCH (09:02)
[2020-02-29] MEDS: DOCUSATE SODIUM 250MG CAPSULE PO SCH (09:02)
[2020-02-29] MEDS: AMIODARONE HCL 200 MG TABLET PO SCH (09:02)
[2020-02-29] MEDS: ENOXAPARIN 40MG/0.4ML SYR SUBCUT SCH (09:02)
[2020-02-29 10:26] LABS: PARTIAL THROMBOPLASTIN TIME 29.2 sec (23.4-31.0); PROTHROMBIN TIME 10.8 sec (9.6-11.0)
[2020-02-29] MEDS ORDERED: AMIODARONE HCL 200 MG TABLET PO SCH (11:00)
[2020-03-01] VITALS (20 sets, daily range): BP systolic 114–162; BP diastolic 54–72
[2020-03-01] MEDS: IPRATROPIUM BROMIDE (0.02%) 0.5MG/2.5ML NEB HHN SCH ×4 (00:28→13:28)
[2020-03-01] MEDS: HYDRALAZINE HCL 100MG TABLET PO SCH ×2 (06:15→14:42)
[2020-03-01] MEDS: CLONIDINE 0.2MG TABLET PO SCH ×2 (06:15→14:42)
[2020-03-01] MEDS: INSULIN LISPRO 100 UNITS/ML SUBCUT SCH ×2 (06:50→12:41)
[2020-03-01] MEDS: BLOOD SUGAR DIAGNOSTIC STRIP TEST SCH ×2 (06:55→12:13)
[2020-03-01] MEDS ORDERED: SODIUM BICARBONATE 4% (2.4MEQ) 5ML VIAL IV ONE (07:50)
[2020-03-01] MEDS ORDERED: LIDOCAINE HCL 1% 20ML VIAL (Pyxis) INJ ONE (07:50)
[2020-03-01] MEDS ORDERED: CEFAZOLIN 1000MG PREMIX 50 ML IV ONE (07:55)
[2020-03-01] MEDS ORDERED: FENTANYL CITRATE/PF 50MCG/ML 2ML VIAL ONE (07:56)
[2020-03-01] MEDS ORDERED: CEFAZOLIN 1000MG PREMIX 50 ML IV NR (08:15)
[2020-03-01] MEDS ORDERED: FENTANYL CITRATE/PF 50MCG/ML 2ML VIAL IV ONE (09:00)
[2020-03-01] MEDS ORDERED: ZINC SULFATE 220 MG ( 50 ) CAPSULE PO SCH (09:00)
[2020-03-01] MEDS ORDERED: ASCORBIC ACID 500 MG TABLET PO SCH (09:00)
[2020-03-01] MEDS: ENOXAPARIN 40MG/0.4ML SYR SUBCUT SCH (09:00)
[2020-03-01] MEDS ORDERED: ONDANSETRON HCL 4MG/2ML INJ ONE (09:26)
[2020-03-01] MEDS ORDERED: ONDANSETRON HCL 4MG/2ML INJ IV ONE (10:00)
[2020-03-01] MEDS: FAMOTIDINE 20MG/2ML VIAL IV SCH (10:26)
[2020-03-01] MEDS: DOCUSATE SODIUM 250MG CAPSULE PO SCH (10:26)
== END 2020-03-01 16:20 | DRG 870 ==
LOC: ER 21:48 → CVICU 02-11 01:19 → EDBEDREQ 02-11 23:15 → ENRESERV 02-13 16:02 → 3WST 02-23 17:48
PROVIDERS: ADMIT Internal Medicine; ATTEND Internal Medicine
PROC: 5A1955Z Respiratory Ventilation, Greater than 96 Consecutive Hours (ICD-10-PCS; principal; 2020-02-11)
PROC: 0BH17EZ Insertion of Endotracheal Airway into Trachea, Via Natural or Artificial Opening (ICD-10-PCS; 2020-02-11)
PROC: 3E0A3GC Introduction of Other Therapeutic Substance into Bone Marrow, Percutaneous Approach (ICD-10-PCS; 2020-02-11)
PROC: 05H533Z Insertion of Infusion Device into Right Subclavian Vein, Percutaneous Approach (ICD-10-PCS; 2020-02-11)
PROC: 02HV33Z Insertion of Infusion Device into Superior Vena Cava, Percutaneous Approach (ICD-10-PCS; 2020-02-27)
PROC: B548ZZA Ultrasonography of Superior Vena Cava, Guidance (ICD-10-PCS; 2020-02-27)
PROC: B5181ZA Fluoroscopy of Superior Vena Cava using Low Osmolar Contrast, Guidance (ICD-10-PCS; 2020-02-27)
PROC: 5A1D70Z Performance of Urinary Filtration, Intermittent, Less than 6 Hours Per Day (ICD-10-PCS; 2020-02-27)
PROC: 5A1D70Z Performance of Urinary Filtration, Intermittent, Less than 6 Hours Per Day (ICD-10-PCS; 2020-02-28)
PROC: 0JH63XZ Insertion of Tunneled Vascular Access Device into Chest Subcutaneous Tissue and Fascia, Percutaneous Approach (ICD-10-PCS; 2020-03-01)
PROC: 02HV33Z Insertion of Infusion Device into Superior Vena Cava, Percutaneous Approach (ICD-10-PCS; 2020-03-01)
PROC: B5181ZA Fluoroscopy of Superior Vena Cava using Low Osmolar Contrast, Guidance (ICD-10-PCS; 2020-03-01)
PROC: 02PYX3Z Removal of Infusion Device from Great Vessel, External Approach (ICD-10-PCS; 2020-03-01)
PROC: 5A1D70Z Performance of Urinary Filtration, Intermittent, Less than 6 Hours Per Day (ICD-10-PCS; 2020-03-01)
DX: A41.9 Sepsis, unspecified organism (principal); J96.01 Acute respiratory failure with hypoxia; J18.9 Pneumonia, unspecified organism; I50.31 Acute diastolic (congestive) heart failure; N17.0 Acute kidney failure with tubular necrosis; J96.02 Acute respiratory failure with hypercapnia; E44.0 Moderate protein-calorie malnutrition; E87.0 Hyperosmolality and hypernatremia; Z99.11 Dependence on respirator [ventilator] status; Z68.43 Body mass index [BMI] 50.0-59.9, adult; I13.0 Hypertensive heart and chronic kidney disease with heart failure and stage 1 through stage 4 chronic kidney disease, or unspecified chronic kidney disease; E87.5 Hyperkalemia; E66.01 Morbid (severe) obesity due to excess calories; F03.90 Unspecified dementia, unspecified severity, without behavioral disturbance, psychotic disturbance, mood disturbance, and anxiety; I27.20 Pulmonary hypertension, unspecified; I48.0 Paroxysmal atrial fibrillation; D64.9 Anemia, unspecified; Z20.828 Contact with and (suspected) exposure to other viral communicable diseases; E78.5 Hyperlipidemia, unspecified; E11.22 Type 2 diabetes mellitus with diabetic chronic kidney disease; N18.9 Chronic kidney disease, unspecified; Z78.1 Physical restraint status; Z79.899 Other long term (current) drug therapy
CPT/HCPCS: 36415; 36558; 36589; 36600; 71045; 76937; 77001; 78580; 80048; 80053; 81003; 82375; 82550; 82570; 82805; 82962; 83605; 83735; 83880; 84100; 84145; 84156; 84300; 84478; 84484; 85025; 86705; 86706; 86709; 86803; 87070; 87340; 92610; 93005; 93306; 93970; 94002; 94003; 94640; 94667; 97162; 97166; 97530; 97535; 99152; 99153; 99291; C1750; C1752; C1769; C9113; J0282; J0360; J0456; J0690; J0696; J1160; J1630; J1642; J1650; J1815; J1940; J2150; J2405; J2704; J2920; J2930; J3010; J3490; J7030; J7060; J7608; G0500

== ENCOUNTER 2020-03-03 15:25 | Inpatient (IN) | payer MEDICARE, MEDICAID ==
[~2020-03-03] VITALS: Ht 165.1 cm; Wt 94.3 kg
[2020-03-03 17:09] LABS: CHLORIDE 96 mEq/L (98-107)
[2020-03-03 17:17] LABS: EOSINOPHILS % 1.2 % (0.0-5.0); HEMATOCRIT. 23.8 % (36.0-48.0); HEMOGLOBIN. 8.1 g/dL (12.0-16.0); LYMPHOCYTES % 18.9 % (20.0-50.0); MEAN CORPUSCULAR HEMOGLOBIN 33.3 pg (28.0-32.0); MEAN CORPUSCULAR VOLUME 97.6 fL (81.0-99.0); MONOCYTES % 6.7 % (2.0-8.0); NEUTROPHILS % 72.2 % (40.0-76.0); RED BLOOD CELL COUNT 2.44 mill/uL (4.2-5.4); RED CELL DISTRIBUTION WIDTH 16.1 % (11.6-14.6)
[2020-03-03 17:46] LABS: PROTHROMBIN TIME 11.1 sec (9.6-11.0)
[2020-03-03 20:24] LABS: MEAN PLATELET VOLUME 9.8 fl (7.4-10.4); PLATELET 185 x1000/uL (130-400)
[2020-03-03 22:40] VITALS: BP 156/65
[2020-03-03] MEDS ORDERED: CLONIDINE 0.2MG TABLET PO SCH (23:30)
[2020-03-03] MEDS ORDERED: ONDANSETRON HCL 4MG TABLET PO SCH (23:30)
[2020-03-03] MEDS ORDERED: CLON0.2T PO (23:34)
[2020-03-03] MEDS ORDERED: HYDR100T26 PO (23:34)
[2020-03-03] MEDS ORDERED: HAL5 PO (23:34)
[2020-03-03] MEDS ORDERED: ONDA4TAB5 PO (23:34)
[2020-03-03] MEDS ORDERED: DOCU-138 PO (23:38)
[2020-03-03] MEDS ORDERED: FAMO-135 PO (23:38)
[2020-03-03] MEDS ORDERED: AMIO100T4 PO (23:38)
[2020-03-03] MEDS ORDERED: IPRA3AMP9 NEB (23:38)
[2020-03-03] MEDS ORDERED: TOPUD PO (23:38)
[2020-03-03] MEDS ORDERED: LOV40 SQ (23:38)
[2020-03-04] VITALS: BP 165/67
[2020-03-04] MEDS ORDERED: CLON0.2T PO (00:56)
[2020-03-04] MEDS ORDERED: CLONIDINE 0.2MG TABLET PO PRN (01:00)
[2020-03-04] MEDS ORDERED: ONDANSETRON HCL 4MG TABLET PO PRN (01:00)
[2020-03-04] MEDS: HYDRALAZINE HCL 100MG TABLET PO SCH ×4 (02:17→21:07)
[2020-03-04] MEDS ORDERED: DEXTROSE 50% WATER 50ML SYRINGE IV PRN (03:30)
[2020-03-04 04:00] VITALS: BP 131/62
[2020-03-04] MEDS: BLOOD SUGAR DIAGNOSTIC STRIP TEST SCH ×4 (07:10→21:07)
[2020-03-04] MEDS: INSULIN LISPRO 100 UNITS/ML SUBCUT SCH ×4 (07:50→21:07)
[2020-03-04 08:06] VITALS: BP 136/57
[2020-03-04] MEDS: FAMOTIDINE 20MG TABLET PO SCH (08:59)
[2020-03-04] MEDS: HALOPERIDOL 5MG TABLET PO SCH (08:59)
[2020-03-04] MEDS: ENOXAPARIN 40MG/0.4ML SYR SUBCUT SCH (09:00)
[2020-03-04 09:14] LABS: HEMATOCRIT 23.2 % (36.0-48.0); HEMOGLOBIN 7.7 g/dL (12.0-16.0); MEAN CORPUSCULAR HEMOGLOBIN 32.3 pg (28.0-32.0); RED BLOOD CELL COUNT 2.37 mill/uL (4.2-5.4); RED CELL DISTRIBUTION WIDTH 15.9 % (11.6-14.6)
[2020-03-04] MEDS ORDERED: HEPARIN SODIUM 1,000 UNIT/1ML VIAL IV SCH (10:30)
[2020-03-04 12:08] VITALS: BP 112/61
[2020-03-04 14:19] LABS: PLATELET 158 x1000/uL (130-400)
[2020-03-04 15:39] LABS: CLARITY URINE TURBID (CLEAR); KETONES URINE 1+ (NEGATIVE); LEUKOCYTE ESTERASE URINE 2+ (NEGATIVE); NITRITE URINE NEGATIVE (NEGATIVE); OCCULT BLOOD URINE 3+ (NEGATIVE); PH URINE 5.5 (4.5-8.0); PROTEIN URINE 3+ (NEGATIVE); SPECIFIC GRAVITY URINE 1.026 (1.005-1.030)
[2020-03-04 15:42] LABS: COLOR URINE DARK YELLOW (YELLOW)
[2020-03-04 16:04] VITALS: BP 147/59
[2020-03-04 20:00] VITALS: BP 111/39
[2020-03-04] MEDS ORDERED: ACETAMINOPHEN 325MG TABLET PO PRN (23:30)
[2020-03-05] VITALS: BP 110/38
[2020-03-05] MEDS: CEFTRIAXONE 1 G PREMIX 50 ML IV SCH ×2 (00:18→23:53)
[2020-03-05 04:00] VITALS: BP 109/41
[2020-03-05] MEDS: HYDRALAZINE HCL 100MG TABLET PO SCH ×3 (05:14→23:58)
[2020-03-05 06:20] LABS: BASOPHILS % 0.9 % (0.0-2.0); EOSINOPHILS % 1.1 % (0.0-5.0); HEMOGLOBIN. 8.2 g/dL (12.0-16.0); LYMPHOCYTES % 15.3 % (20.0-50.0); MEAN CORPUSCULAR VOLUME 97.8 fL (81.0-99.0); MEAN PLATELET VOLUME 9.3 fl (7.4-10.4); MONOCYTES % 6.6 % (2.0-8.0); NEUTROPHILS % 76.1 % (40.0-76.0); PLATELET 188 x1000/uL (130-400); RED BLOOD CELL COUNT 2.55 mill/uL (4.2-5.4); RED CELL DISTRIBUTION WIDTH 16.2 % (11.6-14.6)
[2020-03-05] MEDS: BLOOD SUGAR DIAGNOSTIC STRIP TEST SCH ×4 (07:13→21:00)
[2020-03-05] MEDS: INSULIN LISPRO 100 UNITS/ML SUBCUT SCH ×4 (07:13→21:00)
[2020-03-05 08:00] VITALS: BP 143/52
[2020-03-05] MEDS: AMIODARONE HCL 200 MG TABLET PO SCH (08:18)
[2020-03-05] MEDS: FAMOTIDINE 20MG TABLET PO SCH (08:18)
[2020-03-05] MEDS: HALOPERIDOL 5MG TABLET PO SCH (08:18)
[2020-03-05] MEDS: ENOXAPARIN 40MG/0.4ML SYR SUBCUT SCH (08:18)
[2020-03-05] MEDS ORDERED: MEDICATION NOT ON FORMULARY EA (Amiodarone HCl 200 MG) PO SCH (09:00)
[2020-03-05 12:00] VITALS: BP 124/50
[2020-03-05 16:00] VITALS: BP 122/50
[2020-03-05 20:00] VITALS: BP 97/61
[2020-03-05] MEDS: EPOETIN ALFA 10000UNITS/ML VIAL SUBCUT SCH (23:53)
[2020-03-06] VITALS: BP 138/62
[2020-03-06 04:00] VITALS: BP 155/73
[2020-03-06] MEDS: BLOOD SUGAR DIAGNOSTIC STRIP TEST SCH ×4 (05:17→22:12)
[2020-03-06] MEDS: HYDRALAZINE HCL 100MG TABLET PO SCH ×3 (05:17→22:12)
[2020-03-06 08:00] VITALS: BP 124/59
[2020-03-06] MEDS: HALOPERIDOL 5MG TABLET PO SCH (09:15)
[2020-03-06] MEDS: FAMOTIDINE 20MG TABLET PO SCH (09:15)
[2020-03-06] MEDS: ENOXAPARIN 40MG/0.4ML SYR SUBCUT SCH (09:15)
[2020-03-06] MEDS: INSULIN LISPRO 100 UNITS/ML SUBCUT SCH ×4 (09:20→22:16)
[2020-03-06 12:00] VITALS: BP 148/60
[2020-03-06 16:00] VITALS: BP 152/69
[2020-03-06] MEDS ORDERED: METHYLPREDNISOLONE SOD SUCC 125 MG/2 ML VIAL IV SCH (17:45)
[2020-03-06 20:00] VITALS: BP 130/60
[2020-03-06] MEDS: CEFEPIME 1,000 MG in DEXTROSE 5% WATER 50 ML IV SCH (23:13)
[2020-03-07 00:20] VITALS: BP 157/86
[2020-03-07 04:00] VITALS: BP 160/71
[2020-03-07] MEDS: METHYLPREDNISOLONE SOD SUCC 40 MG/ML VIAL IV SCH ×3 (04:24→20:22)
[2020-03-07] MEDS: HYDRALAZINE HCL 100MG TABLET PO SCH ×3 (06:00→22:00)
[2020-03-07] MEDS: BLOOD SUGAR DIAGNOSTIC STRIP TEST SCH ×4 (06:19→20:14)
[2020-03-07 09:01] LABS: BASOPHILS % 0.2 % (0.0-2.0); HEMATOCRIT. 24.8 % (36.0-48.0); HEMOGLOBIN. 7.9 g/dL (12.0-16.0); LYMPHOCYTES % 15.5 % (20.0-50.0); MEAN CORPUSCULAR HEMOGLOBIN 31.9 pg (28.0-32.0); MEAN CORPUSCULAR VOLUME 99.7 fL (81.0-99.0); MEAN PLATELET VOLUME 8.8 fl (7.4-10.4); MONOCYTES % 1.1 % (2.0-8.0); NEUTROPHILS % 83.2 % (40.0-76.0); PLATELET 181 x1000/uL (130-400); RED BLOOD CELL COUNT 2.48 mill/uL (4.2-5.4); RED CELL DISTRIBUTION WIDTH 16.3 % (11.6-14.6)
[2020-03-07] MEDS: ENOXAPARIN 40MG/0.4ML SYR SUBCUT SCH (11:02)
[2020-03-07] MEDS: HALOPERIDOL 5MG TABLET PO SCH (11:02)
[2020-03-07] MEDS: FAMOTIDINE 20MG TABLET PO SCH (11:03)
[2020-03-07] MEDS: AMIODARONE HCL 200 MG TABLET PO SCH (11:04)
[2020-03-07] MEDS: INSULIN LISPRO 100 UNITS/ML SUBCUT SCH ×4 (11:05→20:18)
[2020-03-07 12:00] VITALS: BP 180/79
[2020-03-07] MEDS ORDERED: ACETYLCYSTEINE 100MG/ML 10% VIAL 4ML INH SCH (14:00)
[2020-03-07 16:00] VITALS: BP 152/77
[2020-03-07 20:00] VITALS: BP 151/66
[2020-03-07] MEDS: CEFEPIME 1,000 MG in DEXTROSE 5% WATER 50 ML IV SCH (20:22)
[2020-03-08] VITALS: BP 154/65
[2020-03-08] MEDS: EPOETIN ALFA 10000UNITS/ML VIAL SUBCUT SCH (02:36)
[2020-03-08 04:00] VITALS: BP 162/78
[2020-03-08] MEDS: HYDRALAZINE HCL 100MG TABLET PO SCH ×3 (06:40→21:15)
[2020-03-08] MEDS: METHYLPREDNISOLONE SOD SUCC 40 MG/ML VIAL IV SCH ×3 (06:40→20:17)
[2020-03-08] MEDS: BLOOD SUGAR DIAGNOSTIC STRIP TEST SCH ×4 (06:51→21:16)
[2020-03-08 08:00] VITALS: BP 160/69
[2020-03-08] MEDS: INSULIN LISPRO 100 UNITS/ML SUBCUT SCH ×3 (09:21→21:16)
[2020-03-08] MEDS: HALOPERIDOL 5MG TABLET PO SCH (09:22)
[2020-03-08] MEDS: AMIODARONE HCL 200 MG TABLET PO SCH (09:22)
[2020-03-08] MEDS: ENOXAPARIN 40MG/0.4ML SYR SUBCUT SCH (09:22)
[2020-03-08] MEDS: FAMOTIDINE 20MG TABLET PO SCH (09:22)
[2020-03-08 12:00] VITALS: BP 146/68
[2020-03-08 16:00] VITALS: BP 146/70
[2020-03-08 20:00] VITALS: BP 164/77
[2020-03-08] MEDS: CEFEPIME 1,000 MG in DEXTROSE 5% WATER 50 ML IV SCH (22:34)
[2020-03-09 00:45] VITALS: BP 127/60
[2020-03-09] MEDS: METHYLPREDNISOLONE SOD SUCC 40 MG/ML VIAL IV SCH ×3 (03:53→22:30)
[2020-03-09 04:00] VITALS: BP 153/72
[2020-03-09] MEDS: HYDRALAZINE HCL 100MG TABLET PO SCH ×3 (06:08→22:31)
[2020-03-09] MEDS: BLOOD SUGAR DIAGNOSTIC STRIP TEST SCH ×4 (06:10→21:00)
[2020-03-09 08:00] VITALS: BP 140/52
[2020-03-09 08:04] LABS: BASOPHILS % 0.1 % (0.0-2.0); HEMATOCRIT. 23.4 % (36.0-48.0); HEMOGLOBIN. 7.7 g/dL (12.0-16.0); LYMPHOCYTES % 19.7 % (20.0-50.0); MEAN CORPUSCULAR HEMOGLOBIN 32.4 pg (28.0-32.0); MEAN CORPUSCULAR VOLUME 98.9 fL (81.0-99.0); MEAN PLATELET VOLUME 8.9 fl (7.4-10.4); NEUTROPHILS % 77.2 % (40.0-76.0); PLATELET 198 x1000/uL (130-400); RED BLOOD CELL COUNT 2.36 mill/uL (4.2-5.4); RED CELL DISTRIBUTION WIDTH 16.4 % (11.6-14.6)
[2020-03-09] MEDS: ENOXAPARIN 40MG/0.4ML SYR SUBCUT SCH (09:56)
[2020-03-09] MEDS: ZINC SULFATE 220 MG ( 50 ) CAPSULE PO SCH (09:56)
[2020-03-09] MEDS: FAMOTIDINE 20MG TABLET PO SCH (09:56)
[2020-03-09] MEDS: ASCORBIC ACID 500 MG TABLET PO SCH (09:57)
[2020-03-09] MEDS: HALOPERIDOL 5MG TABLET PO SCH (09:57)
[2020-03-09] MEDS: INSULIN LISPRO 100 UNITS/ML SUBCUT SCH ×4 (10:02→21:00)
[2020-03-09 12:00] VITALS: BP 158/62
[2020-03-09 16:00] VITALS: BP 115/67
[2020-03-09] MEDS ORDERED: HEPARIN SODIUM 1,000 UNIT/1ML VIAL IV NR (18:45)
[2020-03-09 20:00] VITALS: BP 119/67
[2020-03-09] MEDS: CEFEPIME 1,000 MG in DEXTROSE 5% WATER 50 ML IV SCH (22:29)
[2020-03-09] MEDS: EPOETIN ALFA 10000UNITS/ML VIAL SUBCUT SCH (22:30)
[2020-03-10] VITALS: BP 142/60
[2020-03-10 04:00] VITALS: BP 163/75
[2020-03-10] MEDS: HYDRALAZINE HCL 100MG TABLET PO SCH ×3 (05:01→21:05)
[2020-03-10] MEDS: METHYLPREDNISOLONE SOD SUCC 40 MG/ML VIAL IV SCH ×3 (05:02→20:34)
[2020-03-10 06:38] LABS: BASOPHILS % 0.5 % (0.0-2.0); HEMATOCRIT. 24.6 % (36.0-48.0); HEMOGLOBIN. 8.1 g/dL (12.0-16.0); LYMPHOCYTES % 14.2 % (20.0-50.0); MEAN CORPUSCULAR VOLUME 97.3 fL (81.0-99.0); MONOCYTES % 5.2 % (2.0-8.0); NEUTROPHILS % 80.1 % (40.0-76.0); RED BLOOD CELL COUNT 2.53 mill/uL (4.2-5.4); RED CELL DISTRIBUTION WIDTH 16.9 % (11.6-14.6)
[2020-03-10] MEDS: BLOOD SUGAR DIAGNOSTIC STRIP TEST SCH ×4 (07:43→20:57)
[2020-03-10 08:00] VITALS: BP 169/66
[2020-03-10 08:19] LABS: PLATELET 230 x1000/uL (130-400)
[2020-03-10] MEDS: FAMOTIDINE 20MG TABLET PO SCH (08:20)
[2020-03-10] MEDS: HALOPERIDOL 5MG TABLET PO SCH (08:20)
[2020-03-10] MEDS: ZINC SULFATE 220 MG ( 50 ) CAPSULE PO SCH (08:20)
[2020-03-10] MEDS: ASCORBIC ACID 500 MG TABLET PO SCH (08:20)
[2020-03-10] MEDS: ENOXAPARIN 40MG/0.4ML SYR SUBCUT SCH (08:21)
[2020-03-10] MEDS: INSULIN LISPRO 100 UNITS/ML SUBCUT SCH ×4 (08:26→21:01)
[2020-03-10 12:00] VITALS: BP 162/58
[2020-03-10 16:00] VITALS: BP 162/76
[2020-03-10 20:00] VITALS: BP 155/66
[2020-03-10] MEDS: CEFEPIME 1,000 MG in DEXTROSE 5% WATER 50 ML IV SCH (21:01)
[2020-03-11] VITALS: BP 173/66
[2020-03-11] MEDS: METHYLPREDNISOLONE SOD SUCC 40 MG/ML VIAL IV SCH ×3 (03:50→21:53)
[2020-03-11 04:00] VITALS: BP 111/54
[2020-03-11] MEDS: BLOOD SUGAR DIAGNOSTIC STRIP TEST SCH ×4 (06:11→21:53)
[2020-03-11] MEDS: HYDRALAZINE HCL 100MG TABLET PO SCH ×3 (06:30→21:53)
[2020-03-11 08:00] VITALS: BP 164/73
[2020-03-11] MEDS: ZINC SULFATE 220 MG ( 50 ) CAPSULE PO SCH (08:42)
[2020-03-11] MEDS: HALOPERIDOL 5MG TABLET PO SCH (08:42)
[2020-03-11] MEDS: FAMOTIDINE 20MG TABLET PO SCH (08:42)
[2020-03-11] MEDS: ASCORBIC ACID 500 MG TABLET PO SCH (08:42)
[2020-03-11] MEDS: ENOXAPARIN 40MG/0.4ML SYR SUBCUT SCH (08:43)
[2020-03-11] MEDS: INSULIN LISPRO 100 UNITS/ML SUBCUT SCH ×4 (08:46→21:55)
[2020-03-11 12:00] VITALS: BP 149/64
[2020-03-11 16:00] VITALS: BP 140/60
[2020-03-11 20:00] VITALS: BP 139/70
[2020-03-11] MEDS: CEFEPIME 1,000 MG in DEXTROSE 5% WATER 50 ML IV SCH (21:53)
[2020-03-12] VITALS (7 sets, daily range): BP systolic 143–171; BP diastolic 63–70
[2020-03-12] MEDS: METHYLPREDNISOLONE SOD SUCC 40 MG/ML VIAL IV SCH ×2 (03:05→12:35)
[2020-03-12] MEDS: HYDRALAZINE HCL 100MG TABLET PO SCH ×2 (06:52→15:30)
[2020-03-12] MEDS: BLOOD SUGAR DIAGNOSTIC STRIP TEST SCH ×2 (06:52→12:37)
[2020-03-12] MEDS ORDERED: HEPARIN SODIUM 1,000 UNIT/1ML VIAL IV NR (09:00)
[2020-03-12] MEDS: AMIODARONE HCL 200 MG TABLET PO SCH (09:00)
[2020-03-12] MEDS: INSULIN LISPRO 100 UNITS/ML SUBCUT SCH ×2 (09:32→12:36)
[2020-03-12] MEDS: ENOXAPARIN 40MG/0.4ML SYR SUBCUT SCH (09:33)
[2020-03-12] MEDS: ASCORBIC ACID 500 MG TABLET PO SCH (09:33)
[2020-03-12] MEDS: ZINC SULFATE 220 MG ( 50 ) CAPSULE PO SCH (09:33)
[2020-03-12] MEDS: FAMOTIDINE 20MG TABLET PO SCH (09:33)
[2020-03-12] MEDS: HALOPERIDOL 5MG TABLET PO SCH (09:35)
[2020-03-12 10:38] LABS: MEAN CORPUSCULAR HEMOGLOBIN 32.2 pg (28.0-32.0); MEAN CORPUSCULAR VOLUME 97.2 fL (81.0-99.0); MEAN PLATELET VOLUME 8.8 fl (7.4-10.4); PLATELET 270 x1000/uL (130-400); RED BLOOD CELL COUNT 2.78 mill/uL (4.2-5.4); RED CELL DISTRIBUTION WIDTH 17.5 % (11.6-14.6)
[2020-03-12 14:19] LABS: NUCLEATED RED BLOOD CELLS 4 /100 WBC
[2020-03-12 14:20] LABS: PLATELET ESTIMATE NORMAL
== END 2020-03-12 17:10 | DRG 871 ==
LOC: ER 15:25 → 6WST 19:40 → ENRESERV 21:34
PROVIDERS: ADMIT Internal Medicine; ATTEND Internal Medicine
PROC: 5A1D70Z Performance of Urinary Filtration, Intermittent, Less than 6 Hours Per Day (ICD-10-PCS; principal; 2020-03-04)
PROC: 5A1D70Z Performance of Urinary Filtration, Intermittent, Less than 6 Hours Per Day (ICD-10-PCS; 2020-03-05)
PROC: 5A1D70Z Performance of Urinary Filtration, Intermittent, Less than 6 Hours Per Day (ICD-10-PCS; 2020-03-07)
PROC: 5A1D70Z Performance of Urinary Filtration, Intermittent, Less than 6 Hours Per Day (ICD-10-PCS; 2020-03-09)
PROC: 5A1D70Z Performance of Urinary Filtration, Intermittent, Less than 6 Hours Per Day (ICD-10-PCS; 2020-03-12)
DX: A41.9 Sepsis, unspecified organism (principal); G92 Toxic encephalopathy; N18.6 End stage renal disease; E43 Unspecified severe protein-calorie malnutrition; J18.9 Pneumonia, unspecified organism; J96.22 Acute and chronic respiratory failure with hypercapnia; J96.21 Acute and chronic respiratory failure with hypoxia; I50.33 Acute on chronic diastolic (congestive) heart failure; I13.2 Hypertensive heart and chronic kidney disease with heart failure and with stage 5 chronic kidney disease, or end stage renal disease; N39.0 Urinary tract infection, site not specified; J98.19 Other pulmonary collapse; N17.9 Acute kidney failure, unspecified; E11.22 Type 2 diabetes mellitus with diabetic chronic kidney disease; E66.01 Morbid (severe) obesity due to excess calories; E78.5 Hyperlipidemia, unspecified; I48.0 Paroxysmal atrial fibrillation; F03.90 Unspecified dementia, unspecified severity, without behavioral disturbance, psychotic disturbance, mood disturbance, and anxiety; E78.00 Pure hypercholesterolemia, unspecified; F99 Mental disorder, not otherwise specified; D64.9 Anemia, unspecified; Y95 Nosocomial condition; I27.20 Pulmonary hypertension, unspecified; Z68.34 Body mass index [BMI] 34.0-34.9, adult; Z99.2 Dependence on renal dialysis; Z79.1 Long term (current) use of non-steroidal anti-inflammatories (NSAID); Z79.899 Other long term (current) drug therapy; Z87.01 Personal history of pneumonia (recurrent)
CPT/HCPCS: 36415; 71045; 71250; 80048; 80053; 81003; 82962; 83036; 84484; 85025; 85027; 92610; 93005; 94667; 97162; 99291; J0692; J0696; J0885; J1630; J1644; J1650; J1815; J2920; J2930; J7060

== ENCOUNTER 2020-03-20 09:05 | Inpatient (IN) | payer MEDICARE, MEDICAID ==
[~2020-03-20] VITALS: Ht 167.6 cm; Wt 105.2 kg
[~2020-03-20 09:05] MED LIST: AMIO100T4 PO; CLON0.2T PO; DOCU-138 PO; FAMO-135 PO; HAL5 PO; HYDR100T26 PO; IPRA3AMP9 NEB; LOV40 SQ; ONDA4TAB5 PO; TOPUD PO
[2020-03-20] MEDS ORDERED: VANCOMYCIN 1 G PREMIX 200 ML IV ONE (09:15)
[2020-03-20] MEDS ORDERED: PIPERACILLIN/TAZ 3.375G PREMIX 50 ML IV ONE (09:15)
[2020-03-20 09:34] LABS: BG BASE EXCESS 1.5 mmol/L (-2.0-2.0); BG CARBOXYHEMOGLOBIN 0.3 % (0.5-1.5); BG DEOXYHEMOGLOBIN 0.6 % (0.0-5.0); BG HCO3 ACT 28.7 mmol/L (22.0-26.0); BG METHEMOGLOBIN 0.3 % (0.0-1.5); BG OXYGEN SATURATION 99.4 % (92.0-98.5); BG OXYHEMOGLOBIN 98.8 % (94.0-97.0); BG PCO2 59.3 mmHg (35.0-45.0); BG PH 7.302 (7.350-7.450); BG PO2 269.3 mmHg (75.0-100.0); BG SAMPLE SITE RIGHT RADIAL; BG TOTAL HEMOGLOBIN 9.4 g/dL (12.0-18.0); BG VENT MODE MASK - NRB
[2020-03-20 09:55] LABS: CHLORIDE 95 mEq/L (98-107)
[2020-03-20 09:56] LABS: HEMATOCRIT. 27.9 % (36.0-48.0); HEMOGLOBIN. 9.1 g/dL (12.0-16.0); MEAN CORPUSCULAR HEMOGLOBIN 31.5 pg (28.0-32.0); MEAN CORPUSCULAR VOLUME 96.9 fL (81.0-99.0); MEAN PLATELET VOLUME 9.1 fl (7.4-10.4); PLATELET 119 x1000/uL (130-400); RED BLOOD CELL COUNT 2.88 mill/uL (4.2-5.4); RED CELL DISTRIBUTION WIDTH 17.8 % (11.6-14.6)
[2020-03-20 10:00] LABS: D-DIMER 2.53 mg/L FEU (<0.50)
[2020-03-20 10:01] LABS: CLARITY URINE TURBID (CLEAR); COLOR URINE DARK YELLOW (YELLOW); KETONES URINE TRACE (NEGATIVE); LEUKOCYTE ESTERASE URINE 2+ (NEGATIVE); NITRITE URINE NEGATIVE (NEGATIVE); OCCULT BLOOD URINE TRACE (NEGATIVE); PROTEIN URINE 3+ (NEGATIVE); SPECIFIC GRAVITY URINE 1.023 (1.005-1.030); UROBILINOGEN URINE 0.2 E.U./dL (0.2-1.0)
[2020-03-20 10:04] LABS: CREATINE KINASE 93 IU/L (26-192)
[2020-03-20 10:27] LABS: PROTHROMBIN TIME 10.9 sec (9.6-11.0)
[2020-03-20 10:28] LABS: PLATELET ESTIMATE SLIGHTLY DECREASED
[2020-03-20 17:00] VITALS: BP 105/58
[2020-03-20] MEDS ORDERED: CLONIDINE 0.2MG TABLET PO SCH (17:00)
[2020-03-20] MEDS ORDERED: ONDANSETRON HCL 4MG/2ML INJ IV PRN (17:00)
[2020-03-20 17:01] VITALS: BP 105/58
[2020-03-20] MEDS: HYDRALAZINE HCL 100MG TABLET PO SCH ×2 (17:30→22:00)
[2020-03-20] MEDS ORDERED: DEXTROSE 50% WATER 50ML SYRINGE IV PRN (18:30)
[2020-03-20 20:00] VITALS: BP 127/55
[2020-03-20] MEDS: BLOOD SUGAR DIAGNOSTIC STRIP TEST SCH (21:00)
[2020-03-20] MEDS: INSULIN LISPRO 100 UNITS/ML SUBCUT SCH (21:00)
[2020-03-20] MEDS: CLONIDINE 0.1MG TABLET PO SCH (22:00)
[2020-03-20] MEDS ORDERED: DIPHENHYDRAMINE 50MG/ML VIAL IV PRN (22:15)
[2020-03-20 23:00] VITALS: BP 160/84
[2020-03-20] MEDS ORDERED: SODIUM POLYSTYRENE SULFONATE 15 G/60 ML BOT PO SCH ×2 (23:15→23:30)
[2020-03-20] MEDS: LORAZEPAM 2MG/ML CPJ IV PRN (23:18)
[2020-03-20] MEDS ORDERED: ALTEPLASE 4 MG in SODIUM CHLORIDE 0.9% 100 ML IV ONE (23:30)
[2020-03-20] MEDS: CEFEPIME 1,000 MG in DEXTROSE 5% WATER 50 ML IV SCH (23:32)
[2020-03-21] VITALS (9 sets, daily range): BP systolic 110–219; BP diastolic 55–116
[2020-03-21] MEDS ORDERED: ALTEPLASE 4 MG in SODIUM CHLORIDE 0.9% 100 ML IV SCH ×2
[2020-03-21] MEDS ORDERED: ALTEPLASE 2MG/VIAL ITC SCH
[2020-03-21] MEDS: CLONIDINE 0.1MG TABLET PO SCH ×3 (05:52→21:59)
[2020-03-21] MEDS: HYDRALAZINE HCL 100MG TABLET PO SCH ×3 (05:52→21:59)
[2020-03-21 05:53] LABS: BASOPHILS % 0.4 % (0.0-2.0); EOSINOPHILS % 0.3 % (0.0-5.0); HEMATOCRIT. 24.9 % (36.0-48.0); HEMOGLOBIN. 8.3 g/dL (12.0-16.0); LYMPHOCYTES % 18.6 % (20.0-50.0); MEAN CORPUSCULAR HEMOGLOBIN 31.9 pg (28.0-32.0); MEAN CORPUSCULAR VOLUME 95.8 fL (81.0-99.0); MEAN PLATELET VOLUME 8.9 fl (7.4-10.4); MONOCYTES % 4.3 % (2.0-8.0); NEUTROPHILS % 76.4 % (40.0-76.0); PLATELET 105 x1000/uL (130-400); RED CELL DISTRIBUTION WIDTH 16.7 % (11.6-14.6)
[2020-03-21] MEDS: BLOOD SUGAR DIAGNOSTIC STRIP TEST SCH ×4 (06:10→21:52)
[2020-03-21] MEDS: INSULIN LISPRO 100 UNITS/ML SUBCUT SCH ×4 (06:24→21:51)
[2020-03-21] MEDS ORDERED: HYDRALAZINE 20MG/ML VIAL IV PRN (08:30)
[2020-03-21] MEDS: FAMOTIDINE 20MG TABLET PO SCH ×2 (08:43→08:52)
[2020-03-21] MEDS: AMIODARONE HCL 200 MG TABLET PO SCH ×2 (08:43→08:52)
[2020-03-21] MEDS: ENOXAPARIN 40MG/0.4ML SYR SUBCUT SCH (08:44)
[2020-03-21] MEDS: NIFEDIPINE XL 30MG TAB PO SCH (12:00)
[2020-03-21] MEDS ORDERED: POTASSIUM CHLORIDE 20MEQ TABLET SR PO NR (12:00)
[2020-03-21] MEDS: ENALAPRIL 2.5MG/2ML VIAL 2ML IV SCH ×2 (18:32→23:31)
[2020-03-21] MEDS: CEFEPIME 1,000 MG in DEXTROSE 5% WATER 50 ML IV SCH (23:19)
[2020-03-22] VITALS (20 sets, daily range): BP systolic 74–162; BP diastolic 35–79
[2020-03-22] MEDS: LORAZEPAM 2MG/ML CPJ IV PRN (01:17)
[2020-03-22] MEDS: HYDRALAZINE HCL 100MG TABLET PO SCH ×3 (06:00→21:10)
[2020-03-22] MEDS: ENALAPRIL 2.5MG/2ML VIAL 2ML IV SCH (06:00)
[2020-03-22] MEDS: CLONIDINE 0.1MG TABLET PO SCH ×3 (06:00→21:15)
[2020-03-22] MEDS: BLOOD SUGAR DIAGNOSTIC STRIP TEST SCH ×4 (07:43→21:09)
[2020-03-22] MEDS: NIFEDIPINE XL 30MG TAB PO SCH (09:00)
[2020-03-22] MEDS: FAMOTIDINE 20MG TABLET PO SCH (09:00)
[2020-03-22] MEDS ORDERED: SODIUM CHLORIDE 0.9% 500 ML IV ONE (09:30)
[2020-03-22] MEDS: ENOXAPARIN 40MG/0.4ML SYR SUBCUT SCH (09:59)
[2020-03-22] MEDS: INSULIN LISPRO 100 UNITS/ML SUBCUT SCH ×4 (10:02→21:00)
[2020-03-22] MEDS ORDERED: ALBUMIN HUMAN 25GM/100ML (25%) IV NR ×2 (11:00→15:00)
[2020-03-22 11:15] LABS: BG BASE EXCESS -1.7 mmol/L (-2.0-2.0); BG CARBOXYHEMOGLOBIN 0.3 % (0.5-1.5); BG DEOXYHEMOGLOBIN 1.7 % (0.0-5.0); BG FRACTION INSPIRED OXYGEN 46; BG HCO3 ACT 24.6 mmol/L (22.0-26.0); BG METHEMOGLOBIN 0.4 % (0.0-1.5); BG OXYGEN SATURATION 98.3 % (92.0-98.5); BG OXYHEMOGLOBIN 97.6 % (94.0-97.0); BG PCO2 49.7 mmHg (35.0-45.0); BG PH 7.312 (7.350-7.450); BG PO2 134.2 mmHg (75.0-100.0); BG SAMPLE SITE RIGHT BRACHIAL; BG TOTAL HEMOGLOBIN 8.6 g/dL (12.0-18.0); BG VENT MODE NASAL CANNULA
[2020-03-22] MEDS ORDERED: SODIUM CHLORIDE 0.9% 1000ML BAG (SEPSIS BOLUS) IV NR (15:00)
[2020-03-22] MEDS ORDERED: DOPAMINE 800MG PREMIX (DOUBLE) 250 ML IV PRN (15:00)
[2020-03-22 16:00] LABS: BASOPHILS % 0.6 % (0.0-2.0); EOSINOPHILS % 0.8 % (0.0-5.0); HEMATOCRIT. 23.5 % (36.0-48.0); HEMOGLOBIN. 7.7 g/dL (12.0-16.0); LYMPHOCYTES % 21.4 % (20.0-50.0); MEAN CORPUSCULAR HEMOGLOBIN 32.3 pg (28.0-32.0); MEAN CORPUSCULAR VOLUME 98.7 fL (81.0-99.0); MONOCYTES % 2.1 % (2.0-8.0); NEUTROPHILS % 75.1 % (40.0-76.0); PLATELET 112 x1000/uL (130-400); RED BLOOD CELL COUNT 2.38 mill/uL (4.2-5.4); RED CELL DISTRIBUTION WIDTH 18.1 % (11.6-14.6)
[2020-03-22 16:15] LABS: PHOSPHORUS 3.4 mg/dL (2.5-4.9)
[2020-03-22 17:34] LABS: BG BASE EXCESS 0.8 mmol/L (-2.0-2.0); BG CARBOXYHEMOGLOBIN 0.3 % (0.5-1.5); BG HCO3 ACT 27.8 mmol/L (22.0-26.0); BG OXYHEMOGLOBIN 98.7 % (94.0-97.0); BG PCO2 58.1 mmHg (35.0-45.0); BG PH 7.297 (7.350-7.450); BG PO2 156.5 mmHg (75.0-100.0); BG SAMPLE SITE RIGHT BRACHIAL; BG TOTAL HEMOGLOBIN 8.4 g/dL (12.0-18.0); BG VENT MODE NASAL CANNULA
[2020-03-22] MEDS ORDERED: NOREPINEPHRINE 16 MG in DEXT 5% WATER 234 ML IV PRN (19:45)
[2020-03-22] MEDS: CEFEPIME 1,000 MG in DEXTROSE 5% WATER 50 ML IV SCH (23:28)
[2020-03-23] VITALS (47 sets, daily range): BP systolic 78–149; BP diastolic 37–91
[2020-03-23] MEDS: HYDRALAZINE HCL 100MG TABLET PO SCH (05:46)
[2020-03-23] MEDS: CLONIDINE 0.1MG TABLET PO SCH ×3 (05:47→22:05)
[2020-03-23] MEDS: BLOOD SUGAR DIAGNOSTIC STRIP TEST SCH ×4 (07:30→21:59)
[2020-03-23] MEDS: INSULIN LISPRO 100 UNITS/ML SUBCUT SCH ×4 (08:00→22:04)
[2020-03-23] MEDS: AMIODARONE HCL 200 MG TABLET PO SCH (08:40)
[2020-03-23] MEDS: ENOXAPARIN 40MG/0.4ML SYR SUBCUT SCH (08:40)
[2020-03-23] MEDS: FAMOTIDINE 20MG TABLET PO SCH (08:41)
[2020-03-23 09:36] LABS: BASOPHILS % 0.6 % (0.0-2.0); EOSINOPHILS % 0.6 % (0.0-5.0); HEMOGLOBIN. 8.2 g/dL (12.0-16.0); LYMPHOCYTES % 20.1 % (20.0-50.0); MEAN CORPUSCULAR HEMOGLOBIN 32.5 pg (28.0-32.0); MEAN CORPUSCULAR VOLUME 98.8 fL (81.0-99.0); NEUTROPHILS % 76.7 % (40.0-76.0); PLATELET 107 x1000/uL (130-400); RED BLOOD CELL COUNT 2.53 mill/uL (4.2-5.4); RED CELL DISTRIBUTION WIDTH 18.1 % (11.6-14.6)
[2020-03-23] MEDS ORDERED: HEPARIN SODIUM 1,000 UNIT/1ML VIAL IV NR (13:45)
[2020-03-23] MEDS: CEFEPIME 1,000 MG in DEXTROSE 5% WATER 50 ML IV SCH (22:06)
[2020-03-24] VITALS (7 sets, daily range): BP systolic 90–107; BP diastolic 37–52
[2020-03-24] MEDS: CLONIDINE 0.1MG TABLET PO SCH ×3 (05:16→21:07)
[2020-03-24] MEDS: BLOOD SUGAR DIAGNOSTIC STRIP TEST SCH ×4 (06:55→21:07)
[2020-03-24] MEDS: INSULIN LISPRO 100 UNITS/ML SUBCUT SCH ×4 (07:50→21:00)
[2020-03-24] MEDS: ENOXAPARIN 40MG/0.4ML SYR SUBCUT SCH (09:54)
[2020-03-24] MEDS: FAMOTIDINE 20MG TABLET PO SCH (09:54)
[2020-03-24 11:34] LABS: BG BASE EXCESS 1.1 mmol/L (-2.0-2.0); BG CARBOXYHEMOGLOBIN 0.3 % (0.5-1.5); BG DEOXYHEMOGLOBIN 1.7 % (0.0-5.0); BG METHEMOGLOBIN 0.1 % (0.0-1.5); BG OXYGEN SATURATION 98.3 % (92.0-98.5); BG OXYHEMOGLOBIN 97.9 % (94.0-97.0); BG PCO2 58.5 mmHg (35.0-45.0); BG PH 7.298 (7.350-7.450); BG SAMPLE SITE RIGHT BRACHIAL; BG TOTAL HEMOGLOBIN 8.2 g/dL (12.0-18.0); BG VENT MODE NASAL CANNULA
[2020-03-25] VITALS: BP 102/45
[2020-03-25] MEDS: CEFEPIME 1,000 MG in DEXTROSE 5% WATER 50 ML IV SCH ×2 (03:08→22:12)
[2020-03-25 04:00] VITALS: BP 107/48
[2020-03-25] MEDS: BLOOD SUGAR DIAGNOSTIC STRIP TEST SCH ×4 (07:20→21:00)
[2020-03-25] MEDS: INSULIN LISPRO 100 UNITS/ML SUBCUT SCH ×4 (07:50→22:14)
[2020-03-25 08:00] VITALS: BP 100/40
[2020-03-25] MEDS: FAMOTIDINE 20MG TABLET PO SCH (09:54)
[2020-03-25] MEDS: ENOXAPARIN 40MG/0.4ML SYR SUBCUT SCH (09:55)
[2020-03-25 12:00] VITALS: BP 94/33
[2020-03-25] MEDS: CLONIDINE 0.1MG TABLET PO SCH ×2 (13:39→22:13)
[2020-03-25 16:00] VITALS: BP 131/52
[2020-03-25] MEDS: LINEZOLID 600 MG PREMIX 300 ML IV SCH (18:05)
[2020-03-25 20:00] VITALS: BP 127/51
[2020-03-26] VITALS (9 sets, daily range): BP systolic 87–129; BP diastolic 37–62
[2020-03-26] MEDS: LINEZOLID 600 MG PREMIX 300 ML IV SCH ×2 (05:09→18:18)
[2020-03-26] MEDS: CLONIDINE 0.1MG TABLET PO SCH ×3 (05:09→21:53)
[2020-03-26] MEDS: ACETAMINOPHEN 325MG TABLET PO PRN ×3 (05:47→16:59)
[2020-03-26] MEDS: INSULIN LISPRO 100 UNITS/ML SUBCUT SCH ×4 (07:39→21:52)
[2020-03-26] MEDS: BLOOD SUGAR DIAGNOSTIC STRIP TEST SCH ×4 (07:39→21:51)
[2020-03-26] MEDS: ENOXAPARIN 40MG/0.4ML SYR SUBCUT SCH (08:28)
[2020-03-26] MEDS: AMIODARONE HCL 200 MG TABLET PO SCH (08:28)
[2020-03-26] MEDS: FAMOTIDINE 20MG TABLET PO SCH (08:28)
[2020-03-26] MEDS ORDERED: HEPARIN SODIUM 1,000 UNIT/1ML VIAL IV NR (09:15)
[2020-03-26] MEDS ORDERED: ACETAMINOPHEN 325MG TABLET PO NR (18:00)
[2020-03-26 22:49] LABS: BASOPHILS % 0.8 % (0.0-2.0); EOSINOPHILS % 1.2 % (0.0-5.0); HEMATOCRIT. 23.7 % (36.0-48.0); HEMOGLOBIN. 7.7 g/dL (12.0-16.0); LYMPHOCYTES % 34.3 % (20.0-50.0); MEAN CORPUSCULAR HEMOGLOBIN 32.1 pg (28.0-32.0); MEAN CORPUSCULAR VOLUME 98.4 fL (81.0-99.0); MONOCYTES % 3.1 % (2.0-8.0); NEUTROPHILS % 60.6 % (40.0-76.0); PLATELET 114 x1000/uL (130-400); RED BLOOD CELL COUNT 2.41 mill/uL (4.2-5.4); RED CELL DISTRIBUTION WIDTH 17.9 % (11.6-14.6)
[2020-03-27] VITALS: BP 123/58
[2020-03-27 04:00] VITALS: BP 114/60
[2020-03-27] MEDS: LINEZOLID 600 MG PREMIX 300 ML IV SCH (05:25)
[2020-03-27] MEDS: CLONIDINE 0.1MG TABLET PO SCH ×2 (05:25→14:00)
[2020-03-27] MEDS: INSULIN LISPRO 100 UNITS/ML SUBCUT SCH ×2 (07:50→12:32)
[2020-03-27 08:00] VITALS: BP 117/52
[2020-03-27] MEDS: BLOOD SUGAR DIAGNOSTIC STRIP TEST SCH ×2 (08:00→12:32)
[2020-03-27] MEDS: FAMOTIDINE 20MG TABLET PO SCH (09:54)
[2020-03-27] MEDS: ENOXAPARIN 40MG/0.4ML SYR SUBCUT SCH (09:54)
[2020-03-27 12:00] VITALS: BP 109/55
== END 2020-03-27 18:20 | DRG 871 ==
LOC: ER 09:20 → 7WST 11:14 → EDBEDREQTM 11:20 → EDBEDREQ 11:20 → EDBEDREQSVC 11:20 → ENRESERV 16:08 → 5WST 21:30 → 5EST 03-22 20:10 → 6WST 03-24 00:30
PROVIDERS: ADMIT Internal Medicine; ATTEND Internal Medicine
PROC: 5A1D70Z Performance of Urinary Filtration, Intermittent, Less than 6 Hours Per Day (ICD-10-PCS; 2020-03-21)
PROC: 02HV33Z Insertion of Infusion Device into Superior Vena Cava, Percutaneous Approach (ICD-10-PCS; 2020-03-22)
PROC: B548ZZA Ultrasonography of Superior Vena Cava, Guidance (ICD-10-PCS; 2020-03-22)
PROC: 5A09357 Assistance with Respiratory Ventilation, Less than 24 Consecutive Hours, Continuous Positive Airway Pressure (ICD-10-PCS; 2020-03-22)
PROC: 5A1D70Z Performance of Urinary Filtration, Intermittent, Less than 6 Hours Per Day (ICD-10-PCS; principal; 2020-03-23)
PROC: 5A1D70Z Performance of Urinary Filtration, Intermittent, Less than 6 Hours Per Day (ICD-10-PCS; 2020-03-26)
DX: A41.9 Sepsis, unspecified organism (principal); G92 Toxic encephalopathy; J96.01 Acute respiratory failure with hypoxia; J96.02 Acute respiratory failure with hypercapnia; N18.6 End stage renal disease; E43 Unspecified severe protein-calorie malnutrition; I50.33 Acute on chronic diastolic (congestive) heart failure; R65.21 Severe sepsis with septic shock; J18.9 Pneumonia, unspecified organism; N39.0 Urinary tract infection, site not specified; E87.1 Hypo-osmolality and hyponatremia; I13.2 Hypertensive heart and chronic kidney disease with heart failure and with stage 5 chronic kidney disease, or end stage renal disease; E87.2 Acidosis; T82.868A Thrombosis due to vascular prosthetic devices, implants and grafts, initial encounter; I48.0 Paroxysmal atrial fibrillation; D63.8 Anemia in other chronic diseases classified elsewhere; E11.22 Type 2 diabetes mellitus with diabetic chronic kidney disease; Z99.2 Dependence on renal dialysis; I27.20 Pulmonary hypertension, unspecified; E87.8 Other disorders of electrolyte and fluid balance, not elsewhere classified; E78.5 Hyperlipidemia, unspecified; E66.9 Obesity, unspecified; Y84.8 Other medical procedures as the cause of abnormal reaction of the patient, or of later complication, without mention of misadventure at the time of the procedure; E87.5 Hyperkalemia; R74.0 Nonspecific elevation of levels of transaminase and lactic acid dehydrogenase [LDH]; F03.90 Unspecified dementia, unspecified severity, without behavioral disturbance, psychotic disturbance, mood disturbance, and anxiety; Z87.01 Personal history of pneumonia (recurrent); Z68.37 Body mass index [BMI] 37.0-37.9, adult; Z03.818 Encounter for observation for suspected exposure to other biological agents ruled out; Y92.89 Other specified places as the place of occurrence of the external cause
CPT/HCPCS: 36415; 36600; 71045; 76937; 78580; 80048; 80053; 81003; 82375; 82550; 82728; 82805; 82962; 83036; 83605; 83615; 83735; 84100; 84145; 84484; 85025; 85379; 85384; 86140; 87077; 87186; 93005; 93970; 96365; 99291; C1725; J0360; J0692; J1200; J1644; J1650; J1815; J2020; J2060; J2543; J2997; J3370; J3490; J7050; J7060; P9047; U0003-CS

== ENCOUNTER → 2021-02-21 | Day surgery (SDC) | payer MEDICARE, MEDICAID, OTHER ==
[~2021-02-21] MED LIST changes: +LIDOCAINE HCL 1% 20ML VIAL (Pyxis) INJ ONE
== END | disposition home or self-care (01) ==
LOC: ANGIO 09:12
PROVIDERS: ATTEND Internal Medicine Nephrology
DX: N18.6 End stage renal disease (principal); Z79.899 Other long term (current) drug therapy
CPT/HCPCS: 36589; J3490

== ENCOUNTER 2021-05-15 08:53 | Inpatient (IN) | payer MEDICARE, MEDICAID ==
[~2021-05-15] VITALS: Ht 162.6 cm; Wt 94.8 kg
[~2021-05-15 08:53] MED LIST changes: -LIDOCAINE HCL 1% 20ML VIAL (Pyxis) INJ ONE
[2021-05-15 09:40] LABS: BASOPHILS % 0.8 % (0.0-2.0); EOSINOPHILS % 0.1 % (0.0-5.0); HEMATOCRIT. 33.9 % (36.0-48.0); HEMOGLOBIN. 11.2 g/dL (12.0-16.0); MEAN CORPUSCULAR HEMOGLOBIN 34.4 pg (28.0-32.0); MEAN CORPUSCULAR VOLUME 104.2 fL (81.0-99.0); MEAN PLATELET VOLUME 7.3 fl (7.4-10.4); MONOCYTES % 4.1 % (2.0-8.0); PLATELET 249 x1000/uL (130-400); RED BLOOD CELL COUNT 3.25 mill/uL (4.2-5.4); RED CELL DISTRIBUTION WIDTH 15.3 % (11.6-14.6)
[2021-05-15 09:47] LABS: CHLORIDE 96 mEq/L (98-107)
[2021-05-15 09:51] LABS: ETHANOL BLOOD < 10 mg/dL; PARTIAL THROMBOPLASTIN TIME 25.8 sec (23.4-31.0); PROTHROMBIN TIME 10.9 sec (9.6-11.0)
[2021-05-15] MEDS ORDERED: PIPERACILLIN/TAZOBACTAM 3.375GM/50ML PREMIX IV ONE (10:30)
[2021-05-15] MEDS ORDERED: PIPERACILLIN/TAZ 3.375G PREMIX 50 ML IV SCH (10:30)
[2021-05-15 19:01] LABS: HEPATITIS B SURFACE ANTIGEN NEGATIVE
[2021-05-15 19:30] LABS: HEPATITIS A AB IGM NEGATIVE (NEGATIVE)
[2021-05-15] MEDS ORDERED: ACETAMINOPHEN 325MG TABLET PO PRN ×2 (21:15)
[2021-05-15] MEDS ORDERED: ONDANSETRON HCL 4MG/2ML INJ IV PRN (21:15)
[2021-05-15] MEDS: FAMOTIDINE 20MG TABLET PO SCH (21:27)
[2021-05-15] MEDS: ASPIRIN 81MG EC TABLET PO SCH (21:27)
[2021-05-15] MEDS: HYDRALAZINE HCL 100MG TABLET PO SCH (21:27)
[2021-05-15] MEDS ORDERED: ENOXAPARIN 30MG/0.3ML SYR SUBCUT SCH (22:00)
[2021-05-15 22:03] LABS: BG BASE EXCESS -0.1 mmol/L (-2.0-2.0); BG CARBOXYHEMOGLOBIN 0.9 % (0.5-1.5); BG DEOXYHEMOGLOBIN 6.2 % (0.0-5.0); BG FRACTION INSPIRED OXYGEN 21; BG HCO3 ACT 27.9 mmol/L (22.0-26.0); BG METHEMOGLOBIN 0.3 % (0.0-1.5); BG OXYGEN SATURATION 93.7 % (92.0-98.5); BG OXYHEMOGLOBIN 92.6 % (94.0-97.0); BG PCO2 62.8 mmHg (35.0-45.0); BG PH 7.266 (7.350-7.450); BG PO2 75.5 mmHg (75.0-100.0); BG SAMPLE SITE LEFT RADIAL; BG TOTAL HEMOGLOBIN 11.8 g/dL (12.0-18.0); BG VENT MODE ROOM AIR
[2021-05-16] VITALS (7 sets, daily range): BP systolic 94–129; BP diastolic 53–63
[2021-05-16] MEDS: HYDRALAZINE HCL 100MG TABLET PO SCH ×3 (05:32→20:59)
[2021-05-16] MEDS: FAMOTIDINE 20MG TABLET PO SCH (08:39)
[2021-05-16] MEDS: ASPIRIN 81MG EC TABLET PO SCH (08:39)
[2021-05-16 09:32] LABS: BASOPHILS % 0.5 % (0.0-2.0); EOSINOPHILS % 1.3 % (0.0-5.0); HEMATOCRIT. 34.9 % (36.0-48.0); HEMOGLOBIN. 11.3 g/dL (12.0-16.0); LYMPHOCYTES % 17.4 % (20.0-50.0); MEAN CORPUSCULAR HEMOGLOBIN 34.7 pg (28.0-32.0); MEAN CORPUSCULAR VOLUME 106.6 fL (81.0-99.0); MONOCYTES % 4.2 % (2.0-8.0); NEUTROPHILS % 76.6 % (40.0-76.0); PLATELET 223 x1000/uL (130-400); RED BLOOD CELL COUNT 3.27 mill/uL (4.2-5.4); RED CELL DISTRIBUTION WIDTH 15.5 % (11.6-14.6)
[2021-05-16] MEDS: ENOXAPARIN 40MG/0.4ML SYR SUBCUT SCH (17:29)
[2021-05-16] MEDS: CEFEPIME 1,000 MG in DEXTROSE 5% WATER 50 ML IV SCH (20:55)
[2021-05-17] VITALS: BP 117/55
[2021-05-17 04:00] VITALS: BP 126/62
[2021-05-17] MEDS: HYDRALAZINE HCL 100MG TABLET PO SCH ×3 (06:05→21:16)
[2021-05-17 08:00] VITALS: BP 121/45
[2021-05-17] MEDS: FAMOTIDINE 20MG TABLET PO SCH (08:42)
[2021-05-17] MEDS: ASPIRIN 81MG EC TABLET PO SCH (08:42)
[2021-05-17] MEDS ORDERED: AMIODARONE HCL 200 MG TABLET PO SCH (09:00)
[2021-05-17 12:00] VITALS: BP 114/58
[2021-05-17 16:00] VITALS: BP 116/62
[2021-05-17] MEDS: ENOXAPARIN 40MG/0.4ML SYR SUBCUT SCH (17:17)
[2021-05-17 20:00] VITALS: BP 117/52
[2021-05-17] MEDS: CEFEPIME 1,000 MG in DEXTROSE 5% WATER 50 ML IV SCH (20:37)
[2021-05-18] VITALS (7 sets, daily range): BP systolic 107–156; BP diastolic 53–70
[2021-05-18] MEDS: HYDRALAZINE HCL 100MG TABLET PO SCH ×3 (05:32→21:15)
[2021-05-18] MEDS: FAMOTIDINE 20MG TABLET PO SCH (09:22)
[2021-05-18] MEDS: ASPIRIN 81MG EC TABLET PO SCH (09:22)
[2021-05-18] MEDS: ENOXAPARIN 40MG/0.4ML SYR SUBCUT SCH (16:42)
[2021-05-18] MEDS: CEFEPIME 1,000 MG in DEXTROSE 5% WATER 50 ML IV SCH (20:00)
== END 2021-05-18 21:30 | DRG 871 ==
LOC: ER 08:59 → MICUSO 10:35 → 7EST 22:38
PROVIDERS: ADMIT Internal Medicine; ATTEND Internal Medicine
PROC: 5A1D70Z Performance of Urinary Filtration, Intermittent, Less than 6 Hours Per Day (ICD-10-PCS; principal; 2021-05-15)
PROC: 5A1D70Z Performance of Urinary Filtration, Intermittent, Less than 6 Hours Per Day (ICD-10-PCS; 2021-05-17)
DX: A41.9 Sepsis, unspecified organism (principal); J18.9 Pneumonia, unspecified organism; G93.41 Metabolic encephalopathy; N18.6 End stage renal disease; I13.2 Hypertensive heart and chronic kidney disease with heart failure and with stage 5 chronic kidney disease, or end stage renal disease; N39.0 Urinary tract infection, site not specified; G82.20 Paraplegia, unspecified; Y95 Nosocomial condition; D64.9 Anemia, unspecified; E11.22 Type 2 diabetes mellitus with diabetic chronic kidney disease; E78.00 Pure hypercholesterolemia, unspecified; E78.5 Hyperlipidemia, unspecified; F03.90 Unspecified dementia, unspecified severity, without behavioral disturbance, psychotic disturbance, mood disturbance, and anxiety; I48.0 Paroxysmal atrial fibrillation; I50.9 Heart failure, unspecified; J45.909 Unspecified asthma, uncomplicated; R53.81 Other malaise; R26.9 Unspecified abnormalities of gait and mobility; K52.9 Noninfective gastroenteritis and colitis, unspecified; Z99.2 Dependence on renal dialysis; Z79.4 Long term (current) use of insulin; Z20.822 Contact with and (suspected) exposure to COVID-19
CPT/HCPCS: 36415; 36600; 70551; 71045; 80048; 80076; 80307; 80320; 80329; 82140; 82375; 82805; 82962; 83605; 83930; 84145; 84443; 84484; 85025; 86592; 86705; 86709; 86803; 87340; 87426; 97162; 99285; J0692; J1650; J2543; J7060; G0480

== ENCOUNTER 2021-10-07 08:49 | Inpatient (IN) | payer MEDICARE, MEDICAID ==
[~2021-10-07] VITALS: Ht 160 cm; Wt 108.0 kg
[2021-10-07 10:48] LABS: HEMATOCRIT. 22.8 % (36.0-48.0); HEMOGLOBIN. 7.3 g/dL (12.0-16.0); MEAN CORPUSCULAR HEMOGLOBIN 32.6 pg (28.0-32.0); MEAN CORPUSCULAR VOLUME 102.3 fL (81.0-99.0); RED BLOOD CELL COUNT 2.23 mill/uL (4.2-5.4)
[2021-10-07 10:53] LABS: CHLORIDE 98 mEq/L (98-107)
[2021-10-07] MEDS ORDERED: DEXTROSE 50% WATER 50ML SYRINGE IV ONE (11:30)
[2021-10-07] MEDS ORDERED: ALBUTEROL (0.083%) 2.5MG/3ML NEB HHN ONE (11:30)
[2021-10-07] MEDS ORDERED: SODIUM BICARBONATE 8.4% 1 MEQ/ML 50ML SYR IV ONE (11:30)
[2021-10-07] MEDS ORDERED: INSULIN REGULAR (HUMULIN R) 300UNITS/3ML VIAL IV ONE (11:30)
[2021-10-07] MEDS ORDERED: CALCIUM CHLORIDE 1GM/10ML SYR IV ONE (11:30)
[2021-10-07 12:19] LABS: PLATELET ESTIMATE NORMAL
[2021-10-07 12:20] LABS: MEAN PLATELET VOLUME 9.2 fl (7.4-10.4); PLATELET 164 x1000/uL (130-400)
[2021-10-07 16:12] LABS: CLARITY URINE TURBID (CLEAR); COLOR URINE YELLOW (YELLOW); KETONES URINE NEGATIVE (NEGATIVE); LEUKOCYTE ESTERASE URINE 3+ (NEGATIVE); NITRITE URINE NEGATIVE (NEGATIVE); OCCULT BLOOD URINE 3+ (NEGATIVE); PH URINE 6.5 (4.5-8.0); PROTEIN URINE 2+ (NEGATIVE); SPECIFIC GRAVITY URINE 1.009 (1.005-1.030); UROBILINOGEN URINE 0.2 E.U./dL (0.2-1.0)
[2021-10-07] MEDS: AZITHROMYCIN 500 MG TABLET PO SCH (19:15)
[2021-10-07] MEDS ORDERED: CEFTRIAXONE 2 G PREMIX 50 ML IV SCH (19:30)
[2021-10-07] MEDS: EPOETIN ALFA-EPBX 4,000 UNIT/ML VIAL SUBCUT SCH (23:01)
[2021-10-08] VITALS (7 sets, daily range): BP systolic 100–136; BP diastolic 46–62
[2021-10-08] MEDS ORDERED: DEXTROSE 50% WATER 50ML SYRINGE IV PRN (11:45)
[2021-10-08] MEDS ORDERED: IPRATROPIUM/ALBUTEROL 0.5-3(2.5)MG/3ML NEB HHN PRN (11:45)
[2021-10-08] MEDS: BLOOD SUGAR DIAGNOSTIC STRIP TEST SCH ×3 (12:10→21:00)
[2021-10-08] MEDS: INSULIN LISPRO 100 UNITS/ML SUBCUT SCH ×3 (12:40→21:00)
[2021-10-08 14:28] LABS: BASOPHILS % 0.6 % (0.0-2.0); EOSINOPHILS % 0.6 % (0.0-5.0); LYMPHOCYTES % 15.2 % (20.0-50.0); MEAN CORPUSCULAR HEMOGLOBIN 32.1 pg (28.0-32.0); MEAN CORPUSCULAR VOLUME 103.5 fL (81.0-99.0); MEAN PLATELET VOLUME 8.8 fl (7.4-10.4); MONOCYTES % 8.5 % (2.0-8.0); NEUTROPHILS % 75.1 % (40.0-76.0); PLATELET 120 x1000/uL (130-400); RED BLOOD CELL COUNT 2.18 mill/uL (4.2-5.4); RED CELL DISTRIBUTION WIDTH 18.7 % (11.6-14.6)
[2021-10-08 14:35] LABS: PHOSPHORUS 4.5 mg/dL (2.5-4.9)
[2021-10-08 14:49] LABS: HEMATOCRIT. 22.6 % (36.0-48.0)
[2021-10-08 14:57] LABS: HEPATITIS B SURFACE ANTIGEN NEGATIVE
[2021-10-08 16:42] LABS: HEMATOCRIT 21.7 % (36.0-48.0); HEMOGLOBIN 7.2 g/dL (12.0-16.0)
[2021-10-08] MEDS: AZITHROMYCIN 500 MG TABLET PO SCH (17:58)
[2021-10-08] MEDS: HEPARIN 5000 UNITS/ML VIAL SUBCUT SCH (22:40)
[2021-10-09] VITALS (7 sets, daily range): BP systolic 107–127; BP diastolic 49–56
[2021-10-09] MEDS: CEFTRIAXONE 2 G in DEXTROSE 5% WATER 50 ML IV SCH ×2 (02:03→21:09)
[2021-10-09] MEDS: BLOOD SUGAR DIAGNOSTIC STRIP TEST SCH ×4 (06:35→21:08)
[2021-10-09] MEDS: INSULIN LISPRO 100 UNITS/ML SUBCUT SCH ×4 (07:40→21:00)
[2021-10-09] MEDS: HEPARIN 5000 UNITS/ML VIAL SUBCUT SCH ×2 (09:09→21:09)
[2021-10-09 13:17] LABS: BASOPHILS % 0.5 % (0.0-2.0); HEMATOCRIT. 23.1 % (36.0-48.0); HEMOGLOBIN. 7.6 g/dL (12.0-16.0); MEAN CORPUSCULAR HEMOGLOBIN 32.2 pg (28.0-32.0); MEAN CORPUSCULAR VOLUME 98.5 fL (81.0-99.0); MEAN PLATELET VOLUME 9.2 fl (7.4-10.4); NEUTROPHILS % 69.5 % (40.0-76.0); PLATELET 109 x1000/uL (130-400); RED BLOOD CELL COUNT 2.35 mill/uL (4.2-5.4); RED CELL DISTRIBUTION WIDTH 18.8 % (11.6-14.6)
[2021-10-09 13:18] LABS: HEMATOCRIT 23.2 % (36.0-48.0); HEMOGLOBIN 7.5 g/dL (12.0-16.0)
[2021-10-09] MEDS: AZITHROMYCIN 500 MG TABLET PO SCH (17:38)
[2021-10-09] MEDS: EPOETIN ALFA-EPBX 4,000 UNIT/ML VIAL SUBCUT SCH (21:09)
[2021-10-09] MEDS ORDERED: MEROPENEM 1,000 MG in SODIUM CHLORIDE 0.9% 100 ML IV SCH (23:30)
[2021-10-10] VITALS (7 sets, daily range): BP systolic 103–141; BP diastolic 47–80
[2021-10-10] MEDS: BLOOD SUGAR DIAGNOSTIC STRIP TEST SCH ×4 (07:10→21:05)
[2021-10-10] MEDS: INSULIN LISPRO 100 UNITS/ML SUBCUT SCH ×4 (07:40→21:00)
[2021-10-10] MEDS: HEPARIN 5000 UNITS/ML VIAL SUBCUT SCH ×3 (09:41→21:00)
[2021-10-10] MEDS: AZITHROMYCIN 500 MG TABLET PO SCH (20:42)
== END 2021-10-10 21:15 | DRG 871 ==
LOC: ER 09:02 → MICUSO 11:54 → EDBEDREQ 12:00 → EDBEDREQSVC 12:00 → 8WST 10-08 10:20
PROVIDERS: ADMIT Internal Medicine; ATTEND Internal Medicine
PROC: 30233N1 Transfusion of Nonautologous Red Blood Cells into Peripheral Vein, Percutaneous Approach (ICD-10-PCS; principal; 2021-10-08)
DX: A41.9 Sepsis, unspecified organism (principal); N18.6 End stage renal disease; J18.9 Pneumonia, unspecified organism; I13.2 Hypertensive heart and chronic kidney disease with heart failure and with stage 5 chronic kidney disease, or end stage renal disease; I50.20 Unspecified systolic (congestive) heart failure; N39.0 Urinary tract infection, site not specified; J96.12 Chronic respiratory failure with hypercapnia; J96.11 Chronic respiratory failure with hypoxia; D64.9 Anemia, unspecified; E11.22 Type 2 diabetes mellitus with diabetic chronic kidney disease; E78.00 Pure hypercholesterolemia, unspecified; E87.5 Hyperkalemia; F03.90 Unspecified dementia, unspecified severity, without behavioral disturbance, psychotic disturbance, mood disturbance, and anxiety; Z20.822 Contact with and (suspected) exposure to COVID-19; G47.33 Obstructive sleep apnea (adult) (pediatric); Z99.2 Dependence on renal dialysis; R41.89 Other symptoms and signs involving cognitive functions and awareness; Z87.09 Personal history of other diseases of the respiratory system
CPT/HCPCS: 36415; 71045; 80048; 80053; 81003; 82962; 83036; 83605; 83880; 84100; 84145; 84484; 85014; 85018; 85025; 86705; 86709; 86803; 86850; 86900; 86920; 87186; 87340; 87426; 93005; 94640; 99291; J0696; J0885; J1644; J1815; J2185; J3490; J7040; J7050; J7060; P9016

== ENCOUNTER 2023-06-03 08:56 | Inpatient (IN) | payer MEDICARE, MEDICAID ==
[~2023-06-03] VITALS: Ht 167.6 cm; Wt 86.9 kg
[2023-06-03] VITALS (37 sets, daily range): BP systolic 63–163; BP diastolic 31–116; PULSE 64–97; RESP 16–29; TEMP 97.6–98.2
[~2023-06-03 08:56] MED LIST changes: +ENOX40SY27 SQ; -HAL5 PO; -LOV40 SQ
[2023-06-03] MEDS ORDERED: ETOMIDATE 2MG/ML 10ML VIAL IV ONE (09:45)
[2023-06-03] MEDS ORDERED: SUCCINYLCHOLINE CHLORIDE 200MG/10ML IV ONE (09:45)
[2023-06-03] MEDS ORDERED: FENTANYL CITRATE/PF 50MCG/ML 2ML VIAL IV ONE (09:45)
[2023-06-03 09:59] LABS: BG BASE EXCESS -1.1 mmol/L (-2.0-2.0); BG CARBOXYHEMOGLOBIN 0.6 % (0.5-1.5); BG DEOXYHEMOGLOBIN 1.6 % (0.0-5.0); BG FRACTION INSPIRED OXYGEN 100; BG HCO3 ACT 28.2 mmol/L (22.0-26.0); BG METHEMOGLOBIN 0.3 % (0.0-1.5); BG OXYGEN SATURATION 98.4 % (92.0-98.5); BG OXYHEMOGLOBIN 97.5 % (94.0-97.0); BG PCO2 74.6 mmHg (35.0-45.0); BG PH 7.196 (7.350-7.450); BG PO2 114.4 mmHg (75.0-100.0); BG TOTAL HEMOGLOBIN 10.8 g/dL (12.0-18.0); BG VENT MODE MASK - NRB
[2023-06-03] MEDS ORDERED: LIDOCAINE HCL 1% 10 MG/ML 10ML VIAL ONE (10:20)
[2023-06-03] MEDS ORDERED: PROPOFOL 10MG/ML 100ML 100 ML IV ONE (11:15)
[2023-06-03 11:41] LABS: BASOPHILS % 0.5 % (0.0-2.0); DIFFERENTIAL COMMENT 0; EOSINOPHILS % 0.5 % (0.0-5.0); HEMATOCRIT. 32.8 % (36.0-48.0); HEMOGLOBIN. 10.2 g/dL (12.0-16.0); LYMPHOCYTES % 21.8 % (20.0-50.0); MEAN CORPUSCULAR HEMOGLOBIN 33.7 pg (28.0-32.0); MEAN CORPUSCULAR VOLUME 108.8 fL (81.0-99.0); MEAN PLATELET VOLUME 8.7 fl (7.4-10.4); MONOCYTES % 7.4 % (2.0-8.0); NEUTROPHILS % 69.8 % (40.0-76.0); PLATELET 100 x1000/uL (130-400); RED BLOOD CELL COUNT 3.01 mill/uL (4.2-5.4); RED CELL DISTRIBUTION WIDTH 16.9 % (11.6-14.6)
[2023-06-03 11:54] LABS: PROTHROMBIN TIME 11.2 sec (9.6-11.0)
[2023-06-03 12:02] LABS: BG CARBOXYHEMOGLOBIN 0.4 % (0.5-1.5); BG DEOXYHEMOGLOBIN 0.4 % (0.0-5.0); BG FRACTION INSPIRED OXYGEN 100; BG HCO3 ACT 30.1 mmol/L (22.0-26.0); BG METHEMOGLOBIN 0.3 % (0.0-1.5); BG OXYGEN SATURATION 99.6 % (92.0-98.5); BG OXYHEMOGLOBIN 98.9 % (94.0-97.0); BG PCO2 52.6 mmHg (35.0-45.0); BG PH 7.375 (7.350-7.450); BG SAMPLE SITE RIGHT RADIAL; BG TOTAL HEMOGLOBIN 10.9 g/dL (12.0-18.0); BG VENT MODE VENT - AC
[2023-06-03] MEDS ORDERED: IPRATROPIUM/ALBUTEROL 0.5-3(2.5)MG/3ML NEB HHN PRN (12:15)
[2023-06-03] MEDS ORDERED: FENTANYL CITRATE/PF 2,500 MCG in SODIUM CHLORIDE 0.9% 200 ML IV PRN (12:15)
[2023-06-03 13:50] LABS: CHLORIDE 94 mEq/L (98-107); INDEX HEMOLYSI 1 (1-3); INDEX ICTERIC 1 (1-4); INDEX LIPEMIC 1 (1-3); POTASSIUM 3.9 mEq/L (3.5-5.1); SODIUM 131 mEq/L (136-145)
[2023-06-03 14:44] LABS: ALANINE AMINOTRANSFERASE 8 IU/L (13-61); ALBUMIN 2.9 g/dL (3.4-5.0); ASPARTATE AMINOTRANSFERASE 8 IU/L (15-37); BILIRUBIN TOTAL 0.6 mg/dL (0.1-1.0); CARBON DIOXIDE 29 mEq/L (21-32); ETHANOL BLOOD < 10 mg/dL (-10); PROTEIN TOTAL 6.9 g/dL (6.0-8.3); UREA NITROGEN BLOOD 26 mg/dL (7-21)
[2023-06-03 14:54] LABS: TROPONIN I HIGH SENSITIVITY 63 ng/L (<54)
[2023-06-03 15:30] LABS: GLUCOSE 132 mg/dL (70-105)
[2023-06-03 18:02] LABS: *AMPHETAMINES SCREEN URINE NEGATIVE (NEGATIVE); *BARBITURATES SCREEN URINE NEGATIVE (NEGATIVE); *BENZODIAZEPINES SCREEN URINE NEGATIVE (NEGATIVE); *COCAINE SCREEN URINE NEGATIVE (NEGATIVE); CANNABINOID URINE SCREEN NEGATIVE (NEGATIVE); ECSTASY MDMA SCREEN URINE NEGATIVE (NEGATIVE); METHADONE URINE SCREEN NEGATIVE (NEGATIVE); PHENCYCLIDINE URINE SCREEN NEGATIVE (NEGATIVE)
[2023-06-03 18:03] LABS: OPIATES URINE SCREEN NEGATIVE (NEGATIVE)
[2023-06-03] MEDS: PROPOFOL 10MG/ML 100ML 100 ML IV PRN (19:11)
[2023-06-03] MEDS: IPRATROPIUM/ALBUTEROL 0.5-3(2.5)MG/3ML NEB HHN SCH (19:38)
[2023-06-03 20:24] LABS: HEPATITIS B SURFACE ANTIGEN NEGATIVE
[2023-06-03] MEDS ORDERED: DEXTROSE 50% WATER 50ML SYRINGE IV PRN (22:30)
[2023-06-03] MEDS ORDERED: ONDANSETRON HCL 4MG/2ML INJ IV PRN (22:30)
[2023-06-03] MEDS ORDERED: ACETAMINOPHEN 650MG/20.3ML UDC PO PRN (22:30)
[2023-06-03] MEDS ORDERED: VANCOMYCIN 500MG PREMIX 100 ML IV NR (23:30)
[2023-06-03] MEDS ORDERED: VANCOMYCIN 1G PREMIX 200 ML IV NR (23:30)
[2023-06-04] VITALS (87 sets, daily range): BP systolic 81–162; BP diastolic 46–120; PULSE 65–84; RESP 15–23; TEMP 98–98.8; O2SAT 99
[2023-06-04] MEDS: PIPERACILLIN/TAZOBACTAM 3.375 G in DEXTROSE 5% WATER 50 ML IV SCH ×3 (01:16→21:08)
[2023-06-04] MEDS: IPRATROPIUM/ALBUTEROL 0.5-3(2.5)MG/3ML NEB HHN SCH ×3 (01:57→20:54)
[2023-06-04] MEDS: PROPOFOL 10MG/ML 100ML 100 ML IV PRN (02:35)
[2023-06-04 06:11] LABS: BASOPHILS % 0.4 % (0.0-2.0); DIFFERENTIAL COMMENT 0; EOSINOPHILS % 1.1 % (0.0-5.0); HEMOGLOBIN. 9.7 g/dL (12.0-16.0); LYMPHOCYTES % 18.3 % (20.0-50.0); MEAN CORPUSCULAR HEMOGLOBIN 33.9 pg (28.0-32.0); MEAN CORPUSCULAR HGB CONC 32.2 g/dL (31.0-37.0); MEAN CORPUSCULAR VOLUME 105.2 fL (81.0-99.0); MEAN PLATELET VOLUME 9.8 fl (7.4-10.4); MONOCYTES % 7.3 % (2.0-8.0); NEUTROPHILS % 72.9 % (40.0-76.0); PLATELET 95 x1000/uL (130-400); RED BLOOD CELL COUNT 2.85 mill/uL (4.2-5.4); RED CELL DISTRIBUTION WIDTH 16.6 % (11.6-14.6)
[2023-06-04 06:12] LABS: POTASSIUM 3.1 mEq/L (3.5-5.1)
[2023-06-04 06:18] LABS: CALCIUM 8.3 mg/dL (8.5-10.1); CREATININE 4.1 mg/dL (0.6-1.3)
[2023-06-04] MEDS: BLOOD SUGAR DIAGNOSTIC STRIP TEST SCH ×4 (06:30→21:08)
[2023-06-04] MEDS: INSULIN LISPRO 100 UNITS/ML SUBCUT SCH ×4 (07:00→21:00)
[2023-06-04] MEDS ORDERED: POTASSIUM CHLORIDE 20MEQ/PACKET PO SCH (08:00)
[2023-06-04] MEDS: PANTOPRAZOLE SODIUM 40 MG/VIAL IV SCH (08:42)
[2023-06-04] MEDS: HEPARIN 5000 UNITS/ML VIAL SUBCUT SCH ×2 (08:47→21:07)
[2023-06-04] MEDS: GABAPENTIN 100MG CAPSULE PO SCH ×2 (08:47→19:41)
[2023-06-04 09:42] LABS: BG CARBOXYHEMOGLOBIN 0.3 % (0.5-1.5); BG FRACTION INSPIRED OXYGEN 40; BG HCO3 ACT 25.7 mmol/L (22.0-26.0); BG OXYHEMOGLOBIN 98.7 % (94.0-97.0); BG PCO2 25.6 mmHg (35.0-45.0); BG PH 7.619 (7.350-7.450); BG PO2 129.2 mmHg (75.0-100.0); BG SAMPLE SITE RIGHT RADIAL; BG TOTAL HEMOGLOBIN 10.6 g/dL (12.0-18.0); BG VENT MODE VENT - AC
[2023-06-04 12:59] LABS: BG BASE EXCESS 2.5 mmol/L (-2.0-2.0); BG CARBOXYHEMOGLOBIN 0.3 % (0.5-1.5); BG DEOXYHEMOGLOBIN 1.3 % (0.0-5.0); BG FRACTION INSPIRED OXYGEN 40; BG HCO3 ACT 27.7 mmol/L (22.0-26.0); BG OXYGEN SATURATION 98.7 % (92.0-98.5); BG OXYHEMOGLOBIN 98.4 % (94.0-97.0); BG PCO2 45.5 mmHg (35.0-45.0); BG PH 7.403 (7.350-7.450); BG PO2 135.3 mmHg (75.0-100.0); BG TOTAL HEMOGLOBIN 11.3 g/dL (12.0-18.0); BG VENT MODE VENT - CPAP
[2023-06-04] MEDS: LANTHANUM CARBONATE 500MG CHEW TABLET PO SCH ×2 (14:17→19:41)
[2023-06-04] MEDS: NOREPINEPHRINE 32 MG in DEXT 5% WATER 218 ML IV PRN (16:35)
[2023-06-05] VITALS (27 sets, daily range): BP systolic 64–146; BP diastolic 35–68; PULSE 56–103; RESP 14–24; TEMP 97.6–98.5; O2SAT 92–99
[2023-06-05] MEDS: IPRATROPIUM/ALBUTEROL 0.5-3(2.5)MG/3ML NEB HHN SCH ×4 (01:24→20:16)
[2023-06-05 05:32] LABS: BASOPHILS % 0.4 % (0.0-2.0); DIFFERENTIAL COMMENT 0; EOSINOPHILS % 1.3 % (0.0-5.0); HEMATOCRIT. 32.9 % (36.0-48.0); HEMOGLOBIN. 10.3 g/dL (12.0-16.0); LYMPHOCYTES % 15.9 % (20.0-50.0); MEAN CORPUSCULAR HEMOGLOBIN 33.7 pg (28.0-32.0); MEAN CORPUSCULAR HGB CONC 31.4 g/dL (31.0-37.0); MEAN CORPUSCULAR VOLUME 107.3 fL (81.0-99.0); MEAN PLATELET VOLUME 9.4 fl (7.4-10.4); MONOCYTES % 7.8 % (2.0-8.0); NEUTROPHILS % 74.6 % (40.0-76.0); PLATELET 96 x1000/uL (130-400); RED BLOOD CELL COUNT 3.06 mill/uL (4.2-5.4); RED CELL DISTRIBUTION WIDTH 16.8 % (11.6-14.6); WHITE BLOOD COUNT 9.9 x1000/uL (4.5-11.0)
[2023-06-05 05:53] LABS: POTASSIUM 3.6 mEq/L (3.5-5.1)
[2023-06-05] MEDS: BLOOD SUGAR DIAGNOSTIC STRIP TEST SCH ×3 (06:00→21:00)
[2023-06-05] MEDS: LANTHANUM CARBONATE 500MG CHEW TABLET PO SCH ×3 (06:00→19:08)
[2023-06-05 06:01] LABS: CALCIUM 8.5 mg/dL (8.5-10.1)
[2023-06-05] MEDS: INSULIN LISPRO 100 UNITS/ML SUBCUT SCH ×4 (06:09→22:11)
[2023-06-05] MEDS: PANTOPRAZOLE SODIUM 40 MG/VIAL IV SCH (09:00)
[2023-06-05] MEDS: PIPERACILLIN/TAZOBACTAM 3.375 G in DEXTROSE 5% WATER 50 ML IV SCH ×2 (09:00→21:12)
[2023-06-05] MEDS: GABAPENTIN 100MG CAPSULE PO SCH ×2 (09:00→19:08)
[2023-06-05] MEDS: HEPARIN 5000 UNITS/ML VIAL SUBCUT SCH (09:00)
[2023-06-05] MEDS ORDERED: VANCOMYCIN 1G PREMIX 200 ML IV NR (11:00)
[2023-06-05 11:01] LABS: BG CARBOXYHEMOGLOBIN 0.6 % (0.5-1.5); BG DEOXYHEMOGLOBIN 1.5 % (0.0-5.0); BG FRACTION INSPIRED OXYGEN 21; BG HCO3 ACT 29.3 mmol/L (22.0-26.0); BG METHEMOGLOBIN 0.2 % (0.0-1.5); BG OXYGEN SATURATION 98.5 % (92.0-98.5); BG OXYHEMOGLOBIN 97.7 % (94.0-97.0); BG PO2 116.8 mmHg (75.0-100.0); BG SAMPLE SITE RIGHT RADIAL; BG TOTAL HEMOGLOBIN 11.1 g/dL (12.0-18.0); BG VENT MODE ROOM AIR
[2023-06-05] MEDS ORDERED: AMIODARONE HCL 50MG/ML 3ML VIAL IV ONE (12:00)
[2023-06-05] MEDS ORDERED: PHENYLEPHRINE 100 MG in DEXT 5% WATER 240 ML IV PRN (12:15)
[2023-06-05] MEDS ORDERED: AMIODARONE 150MG/100ML PREMIX 100 ML IV NR (12:30)
[2023-06-05] MEDS: MIDODRINE HCL 5MG TABLET PO SCH ×2 (13:20→19:09)
[2023-06-05] MEDS: DOXYCYCLINE HYCLATE 100MG CAPSULE PO SCH (19:09)
[2023-06-05] MEDS: AMIODARONE HCL 200 MG TABLET PO SCH (21:00)
[2023-06-05] MEDS: ENOXAPARIN 100MG/ML SYR SUBCUT SCH (21:13)
[2023-06-05 23:33] LABS: HEPATITIS B CORE AB IGM NEGATIVE
[2023-06-05 23:34] LABS: HEPATITIS A AB IGM NEGATIVE (NEGATIVE)
[2023-06-06] VITALS (33 sets, daily range): BP systolic 90–139; BP diastolic 36–85; PULSE 58–72; RESP 12–25; TEMP 98–98.7; O2SAT 100
[2023-06-06] MEDS: IPRATROPIUM/ALBUTEROL 0.5-3(2.5)MG/3ML NEB HHN SCH ×4 (02:21→20:46)
[2023-06-06 04:51] LABS: BASOPHILS % 0.4 % (0.0-2.0); DIFFERENTIAL COMMENT 0; EOSINOPHILS % 2.5 % (0.0-5.0); HEMATOCRIT. 30.5 % (36.0-48.0); HEMOGLOBIN. 9.7 g/dL (12.0-16.0); LYMPHOCYTES % 14.8 % (20.0-50.0); MEAN CORPUSCULAR HEMOGLOBIN 33.3 pg (28.0-32.0); MEAN CORPUSCULAR HGB CONC 31.8 g/dL (31.0-37.0); MEAN CORPUSCULAR VOLUME 104.7 fL (81.0-99.0); MEAN PLATELET VOLUME 9.7 fl (7.4-10.4); MONOCYTES % 8.3 % (2.0-8.0); PLATELET 104 x1000/uL (130-400); RED BLOOD CELL COUNT 2.92 mill/uL (4.2-5.4); RED CELL DISTRIBUTION WIDTH 16.9 % (11.6-14.6); WHITE BLOOD COUNT 8.9 x1000/uL (4.5-11.0)
[2023-06-06 05:04] LABS: POTASSIUM 3.4 mEq/L (3.5-5.1)
[2023-06-06 05:09] LABS: CALCIUM 8.3 mg/dL (8.5-10.1)
[2023-06-06 05:11] LABS: CREATININE 5.8 mg/dL (0.6-1.3)
[2023-06-06] MEDS: BLOOD SUGAR DIAGNOSTIC STRIP TEST SCH ×4 (06:30→21:25)
[2023-06-06] MEDS: LANTHANUM CARBONATE 500MG CHEW TABLET PO SCH ×3 (07:35→17:14)
[2023-06-06] MEDS: INSULIN LISPRO 100 UNITS/ML SUBCUT SCH ×4 (07:36→21:00)
[2023-06-06] MEDS ORDERED: POTASSIUM CHLORIDE 20MEQ/PACKET PO NR (08:15)
[2023-06-06] MEDS: GABAPENTIN 100MG CAPSULE PO SCH ×2 (08:59→17:14)
[2023-06-06] MEDS: PANTOPRAZOLE SODIUM 40 MG/VIAL IV SCH (08:59)
[2023-06-06] MEDS: DOXYCYCLINE HYCLATE 100MG CAPSULE PO SCH ×2 (09:00→21:24)
[2023-06-06] MEDS: AMIODARONE HCL 200 MG TABLET PO SCH ×2 (09:00→21:24)
[2023-06-06] MEDS: MIDODRINE HCL 5MG TABLET PO SCH ×3 (09:00→17:15)
[2023-06-06] MEDS: PIPERACILLIN/TAZOBACTAM 3.375 G in DEXTROSE 5% WATER 50 ML IV SCH ×2 (11:16→21:23)
[2023-06-06] MEDS: ENOXAPARIN 100MG/ML SYR SUBCUT SCH (21:29)
[2023-06-07] VITALS (30 sets, daily range): BP systolic 76–123; BP diastolic 39–57; PULSE 56–68; RESP 17–23; TEMP 98.4–98.5; O2SAT 93–99
[2023-06-07] MEDS: ACETYLCYSTEINE 100MG/ML 10% VIAL 4ML INH SCH ×3 (01:00→15:22)
[2023-06-07] MEDS: IPRATROPIUM/ALBUTEROL 0.5-3(2.5)MG/3ML NEB HHN SCH ×5 (01:01→20:40)
[2023-06-07 04:47] LABS: BASOPHILS % 0.3 % (0.0-2.0); DIFFERENTIAL COMMENT 0; EOSINOPHILS % 0.8 % (0.0-5.0); HEMATOCRIT. 32.4 % (36.0-48.0); HEMOGLOBIN. 10.3 g/dL (12.0-16.0); LYMPHOCYTES % 13.6 % (20.0-50.0); MEAN CORPUSCULAR HEMOGLOBIN 33.6 pg (28.0-32.0); MEAN CORPUSCULAR HGB CONC 31.7 g/dL (31.0-37.0); MEAN CORPUSCULAR VOLUME 105.9 fL (81.0-99.0); MEAN PLATELET VOLUME 9.6 fl (7.4-10.4); MONOCYTES % 6.7 % (2.0-8.0); NEUTROPHILS % 78.6 % (40.0-76.0); PLATELET 122 x1000/uL (130-400); RED BLOOD CELL COUNT 3.06 mill/uL (4.2-5.4); RED CELL DISTRIBUTION WIDTH 16.9 % (11.6-14.6); WHITE BLOOD COUNT 8.6 x1000/uL (4.5-11.0)
[2023-06-07 04:55] LABS: POTASSIUM 3.4 mEq/L (3.5-5.1)
[2023-06-07 05:04] LABS: CALCIUM 8.9 mg/dL (8.5-10.1); CREATININE 4.6 mg/dL (0.6-1.3)
[2023-06-07] MEDS: BLOOD SUGAR DIAGNOSTIC STRIP TEST SCH ×4 (06:30→20:37)
[2023-06-07] MEDS: INSULIN LISPRO 100 UNITS/ML SUBCUT SCH ×4 (07:00→20:36)
[2023-06-07] MEDS: LANTHANUM CARBONATE 500MG CHEW TABLET PO SCH ×3 (08:00→17:08)
[2023-06-07] MEDS: PIPERACILLIN/TAZOBACTAM 3.375 G in DEXTROSE 5% WATER 50 ML IV SCH ×2 (08:49→20:35)
[2023-06-07] MEDS: GABAPENTIN 100MG CAPSULE PO SCH ×2 (08:49→17:08)
[2023-06-07] MEDS: DOXYCYCLINE HYCLATE 100MG CAPSULE PO SCH ×2 (08:49→20:35)
[2023-06-07] MEDS: PANTOPRAZOLE SODIUM 40 MG/VIAL IV SCH (08:49)
[2023-06-07] MEDS: MIDODRINE HCL 5MG TABLET PO SCH ×3 (08:50→17:08)
[2023-06-07] MEDS: AMIODARONE HCL 200 MG TABLET PO SCH ×2 (08:50→20:35)
[2023-06-07] MEDS: ENOXAPARIN 100MG/ML SYR SUBCUT SCH (20:36)
[2023-06-08] VITALS (68 sets, daily range): BP systolic 77–148; BP diastolic 32–108; PULSE 52–91; RESP 13–23; TEMP 97.6–98.6; O2SAT 100
[2023-06-08] MEDS: IPRATROPIUM/ALBUTEROL 0.5-3(2.5)MG/3ML NEB HHN SCH ×6 (00:42→20:34)
[2023-06-08] MEDS: ACETYLCYSTEINE 100MG/ML 10% VIAL 4ML INH SCH ×4 (00:43→20:35)
[2023-06-08] MEDS: NOREPINEPHRINE 32 MG in DEXT 5% WATER 218 ML IV PRN (03:43)
[2023-06-08 05:34] LABS: BASOPHILS % 0.5 % (0.0-2.0); DIFFERENTIAL COMMENT 0; EOSINOPHILS % 2.4 % (0.0-5.0); HEMOGLOBIN. 9.8 g/dL (12.0-16.0); LYMPHOCYTES % 24.2 % (20.0-50.0); MEAN CORPUSCULAR HEMOGLOBIN 33.9 pg (28.0-32.0); MEAN CORPUSCULAR HGB CONC 31.7 g/dL (31.0-37.0); MEAN PLATELET VOLUME 9.2 fl (7.4-10.4); MONOCYTES % 10.9 % (2.0-8.0); PLATELET 125 x1000/uL (130-400); RED CELL DISTRIBUTION WIDTH 17.1 % (11.6-14.6); WHITE BLOOD COUNT 8.6 x1000/uL (4.5-11.0)
[2023-06-08 05:54] LABS: POTASSIUM 3.4 mEq/L (3.5-5.1)
[2023-06-08 06:01] LABS: CALCIUM 9.1 mg/dL (8.5-10.1)
[2023-06-08] MEDS: LANTHANUM CARBONATE 500MG CHEW TABLET PO SCH ×3 (06:12→17:57)
[2023-06-08] MEDS: BLOOD SUGAR DIAGNOSTIC STRIP TEST SCH ×4 (06:12→21:29)
[2023-06-08] MEDS: INSULIN LISPRO 100 UNITS/ML SUBCUT SCH ×4 (06:13→21:00)
[2023-06-08 06:32] LABS: CREATININE 5.9 mg/dL (0.6-1.3)
[2023-06-08] MEDS: DOXYCYCLINE HYCLATE 100MG CAPSULE PO SCH ×2 (09:16→21:28)
[2023-06-08] MEDS: PIPERACILLIN/TAZOBACTAM 3.375 G in DEXTROSE 5% WATER 50 ML IV SCH ×2 (09:16→21:28)
[2023-06-08] MEDS: PANTOPRAZOLE SODIUM 40 MG/VIAL IV SCH (09:16)
[2023-06-08] MEDS: MIDODRINE HCL 5MG TABLET PO SCH ×3 (09:17→18:41)
[2023-06-08] MEDS: GABAPENTIN 100MG CAPSULE PO SCH ×2 (09:18→17:57)
[2023-06-08] MEDS: AMIODARONE HCL 200 MG TABLET PO SCH ×2 (09:18→21:28)
[2023-06-08] MEDS ORDERED: IPRATROPIUM/ALBUTEROL 0.5-3(2.5)MG/3ML NEB ONE (20:29)
[2023-06-08] MEDS: ENOXAPARIN 100MG/ML SYR SUBCUT SCH (21:28)
[2023-06-09] VITALS (77 sets, daily range): BP systolic 83–149; BP diastolic 46–104; PULSE 52–73; RESP 12–33; TEMP 98.6–98.9; O2SAT 98
[2023-06-09] MEDS ORDERED: IPRATROPIUM/ALBUTEROL 0.5-3(2.5)MG/3ML NEB ONE (00:03)
[2023-06-09 05:48] LABS: DIFFERENTIAL COMMENT 0; EOSINOPHILS % 2.8 % (0.0-5.0); HEMATOCRIT. 29.7 % (36.0-48.0); HEMOGLOBIN. 9.6 g/dL (12.0-16.0); LYMPHOCYTES % 22.2 % (20.0-50.0); MEAN CORPUSCULAR HEMOGLOBIN 33.6 pg (28.0-32.0); MEAN CORPUSCULAR HGB CONC 32.2 g/dL (31.0-37.0); MEAN CORPUSCULAR VOLUME 104.4 fL (81.0-99.0); MEAN PLATELET VOLUME 9.5 fl (7.4-10.4); MONOCYTES % 14.3 % (2.0-8.0); NEUTROPHILS % 59.7 % (40.0-76.0); PLATELET 134 x1000/uL (130-400); RED BLOOD CELL COUNT 2.84 mill/uL (4.2-5.4); RED CELL DISTRIBUTION WIDTH 17.1 % (11.6-14.6)
[2023-06-09 06:28] LABS: CALCIUM 9.1 mg/dL (8.5-10.1); CREATININE 4.2 mg/dL (0.6-1.3); POTASSIUM 2.9 mEq/L (3.5-5.1)
[2023-06-09] MEDS: BLOOD SUGAR DIAGNOSTIC STRIP TEST SCH ×4 (07:08→21:07)
[2023-06-09] MEDS: INSULIN LISPRO 100 UNITS/ML SUBCUT SCH ×4 (07:11→21:00)
[2023-06-09] MEDS: LANTHANUM CARBONATE 500MG CHEW TABLET PO SCH ×3 (07:11→17:46)
[2023-06-09] MEDS ORDERED: POTASSIUM CHLORIDE INJ 40 MEQ in DEXT 5% WATER 250 ML IV ONE (08:00)
[2023-06-09] MEDS ORDERED: POTASSIUM CHLORIDE 20MEQ TABLET SR PO NR (08:00)
[2023-06-09] MEDS: ACETYLCYSTEINE 100MG/ML 10% VIAL 4ML INH SCH ×2 (08:37→14:55)
[2023-06-09] MEDS: GABAPENTIN 100MG CAPSULE PO SCH ×2 (09:28→17:46)
[2023-06-09] MEDS: PANTOPRAZOLE SODIUM 40 MG/VIAL IV SCH (09:28)
[2023-06-09] MEDS: DOXYCYCLINE HYCLATE 100MG CAPSULE PO SCH ×2 (09:28→21:06)
[2023-06-09] MEDS: AMIODARONE HCL 200 MG TABLET PO SCH ×2 (09:29→21:06)
[2023-06-09] MEDS: MIDODRINE HCL 5MG TABLET PO SCH ×3 (09:29→17:46)
[2023-06-09] MEDS: PIPERACILLIN/TAZOBACTAM 3.375 G in DEXTROSE 5% WATER 50 ML IV SCH ×2 (09:46→21:06)
[2023-06-09] MEDS: KCL 20MEQ/100ML X 2 FOR TOTAL KCL 40MEQ/200ML IV SCH ×6 (12:00→17:50)
[2023-06-09] MEDS: IPRATROPIUM/ALBUTEROL 0.5-3(2.5)MG/3ML NEB HHN SCH (20:50)
[2023-06-09] MEDS: ENOXAPARIN 100MG/ML SYR SUBCUT SCH (21:07)
[2023-06-10] VITALS (92 sets, daily range): BP systolic 82–179; BP diastolic 42–167; PULSE 54–94; RESP 11–30; TEMP 97.8–98.8; O2SAT 97–100
[2023-06-10] MEDS: IPRATROPIUM/ALBUTEROL 0.5-3(2.5)MG/3ML NEB HHN SCH ×4 (01:47→20:40)
[2023-06-10] MEDS: ACETYLCYSTEINE 100MG/ML 10% VIAL 4ML INH SCH ×2 (01:47→08:22)
[2023-06-10 04:48] LABS: BASOPHILS % 0.7 % (0.0-2.0); DIFFERENTIAL COMMENT 0; EOSINOPHILS % 3.3 % (0.0-5.0); HEMATOCRIT. 29.2 % (36.0-48.0); HEMOGLOBIN. 9.5 g/dL (12.0-16.0); LYMPHOCYTES % 36.4 % (20.0-50.0); MEAN CORPUSCULAR HEMOGLOBIN 33.6 pg (28.0-32.0); MEAN CORPUSCULAR HGB CONC 32.5 g/dL (31.0-37.0); MEAN CORPUSCULAR VOLUME 103.4 fL (81.0-99.0); MONOCYTES % 10.2 % (2.0-8.0); NEUTROPHILS % 49.4 % (40.0-76.0); PLATELET 153 x1000/uL (130-400); RED BLOOD CELL COUNT 2.83 mill/uL (4.2-5.4); WHITE BLOOD COUNT 6.9 x1000/uL (4.5-11.0)
[2023-06-10 04:52] LABS: POTASSIUM 3.8 mEq/L (3.5-5.1)
[2023-06-10 05:01] LABS: CALCIUM 9.3 mg/dL (8.5-10.1)
[2023-06-10 05:12] LABS: CREATININE 5.8 mg/dL (0.6-1.3)
[2023-06-10] MEDS: SODIUM CHLORIDE 3% FOR INH 15ML VIAL NEB INH SCH ×4 (06:00→17:48)
[2023-06-10] MEDS: LANTHANUM CARBONATE 500MG CHEW TABLET PO SCH (06:16)
[2023-06-10] MEDS: BLOOD SUGAR DIAGNOSTIC STRIP TEST SCH ×4 (06:16→21:40)
[2023-06-10] MEDS: INSULIN LISPRO 100 UNITS/ML SUBCUT SCH ×4 (06:17→21:00)
[2023-06-10] MEDS: PIPERACILLIN/TAZOBACTAM 3.375 G in DEXTROSE 5% WATER 50 ML IV SCH ×2 (08:17→21:38)
[2023-06-10] MEDS: PANTOPRAZOLE SODIUM 40 MG/VIAL IV SCH (08:18)
[2023-06-10] MEDS: AMIODARONE HCL 200 MG TABLET PO SCH ×2 (08:18→21:38)
[2023-06-10] MEDS: GABAPENTIN 100MG CAPSULE PO SCH ×2 (08:18→17:47)
[2023-06-10] MEDS: DOXYCYCLINE HYCLATE 100MG CAPSULE PO SCH ×2 (08:18→21:39)
[2023-06-10] MEDS: MIDODRINE HCL 5MG TABLET PO SCH ×3 (08:20→17:47)
[2023-06-10] MEDS ORDERED: SODIUM PHOS,M-BASIC-D-BASIC 20 MM in DEXT 5% WATER 243.3333 ML IV NR (09:00)
[2023-06-10] MEDS: ENOXAPARIN 100MG/ML SYR SUBCUT SCH (21:40)
[2023-06-11] VITALS (62 sets, daily range): BP systolic 76–196; BP diastolic 42–166; PULSE 55–108; RESP 13–29; TEMP 97–98.7; O2SAT 99–100
[2023-06-11] MEDS: IPRATROPIUM/ALBUTEROL 0.5-3(2.5)MG/3ML NEB HHN SCH ×4 (01:51→20:06)
[2023-06-11] MEDS: SODIUM CHLORIDE 3% FOR INH 15ML VIAL NEB INH SCH ×3 (06:00→12:40)
[2023-06-11] MEDS: SODIUM CHLORIDE 3% FOR INH 4ML UD NEB INH SCH (07:57)
[2023-06-11] MEDS: INSULIN LISPRO 100 UNITS/ML SUBCUT SCH ×4 (08:35→21:00)
[2023-06-11] MEDS: BLOOD SUGAR DIAGNOSTIC STRIP TEST SCH ×4 (08:35→21:00)
[2023-06-11 08:47] LABS: BASOPHILS % 1.4 % (0.0-2.0); EOSINOPHILS % 3.5 % (0.0-5.0); HEMATOCRIT. 31.6 % (36.0-48.0); HEMOGLOBIN. 9.9 g/dL (12.0-16.0); LYMPHOCYTES % 41.7 % (20.0-50.0); MEAN CORPUSCULAR HEMOGLOBIN 33.3 pg (28.0-32.0); MEAN CORPUSCULAR HGB CONC 31.4 g/dL (31.0-37.0); MONOCYTES % 11.6 % (2.0-8.0); NEUTROPHILS % 41.8 % (40.0-76.0); RED BLOOD CELL COUNT 2.98 mill/uL (4.2-5.4); RED CELL DISTRIBUTION WIDTH 18.1 % (11.6-14.6)
[2023-06-11 08:53] LABS: DIFFERENTIAL COMMENT 1; POTASSIUM 3.7 mEq/L (3.5-5.1)
[2023-06-11 08:56] LABS: CALCIUM 9.5 mg/dL (8.5-10.1); CREATININE 4.4 mg/dL (0.6-1.3)
[2023-06-11] MEDS ORDERED: ACETYLCYSTEINE 100MG/ML 10% VIAL 4ML INH SCH (09:00)
[2023-06-11] MEDS: GABAPENTIN 100MG CAPSULE PO SCH ×2 (09:22→17:50)
[2023-06-11] MEDS: AMIODARONE HCL 200 MG TABLET PO SCH ×2 (09:22→21:20)
[2023-06-11] MEDS: DOXYCYCLINE HYCLATE 100MG CAPSULE PO SCH ×2 (09:22→21:20)
[2023-06-11] MEDS: PIPERACILLIN/TAZOBACTAM 3.375 G in DEXTROSE 5% WATER 50 ML IV SCH ×2 (09:23→21:31)
[2023-06-11] MEDS: PANTOPRAZOLE SODIUM 40 MG/VIAL IV SCH (09:23)
[2023-06-11] MEDS: MIDODRINE HCL 5MG TABLET PO SCH ×3 (09:23→17:51)
[2023-06-11 09:39] LABS: PLATELET 157 x1000/uL (130-400)
[2023-06-11] MEDS: ENOXAPARIN 100MG/ML SYR SUBCUT SCH (21:20)
[2023-06-12] VITALS (18 sets, daily range): BP systolic 85–127; BP diastolic 39–88; PULSE 59–85; RESP 13–34; TEMP 97.5–98.5; O2SAT 97–99
[2023-06-12] MEDS: IPRATROPIUM/ALBUTEROL 0.5-3(2.5)MG/3ML NEB HHN SCH ×4 (01:55→21:13)
[2023-06-12] MEDS: INSULIN LISPRO 100 UNITS/ML SUBCUT SCH ×4 (08:00→21:00)
[2023-06-12] MEDS: BLOOD SUGAR DIAGNOSTIC STRIP TEST SCH ×4 (08:22→21:00)
[2023-06-12] MEDS: PANTOPRAZOLE SODIUM 40 MG/VIAL IV SCH (10:01)
[2023-06-12] MEDS: AMIODARONE HCL 200 MG TABLET PO SCH ×2 (10:02→23:26)
[2023-06-12] MEDS: PIPERACILLIN/TAZOBACTAM 3.375 G in DEXTROSE 5% WATER 50 ML IV SCH ×2 (10:02→23:26)
[2023-06-12] MEDS: MIDODRINE HCL 5MG TABLET PO SCH ×3 (10:02→17:31)
[2023-06-12] MEDS: GABAPENTIN 100MG CAPSULE PO SCH ×2 (10:03→17:30)
[2023-06-12] MEDS: DOXYCYCLINE HYCLATE 100MG CAPSULE PO SCH ×2 (10:03→23:30)
[2023-06-12] MEDS: ENOXAPARIN 100MG/ML SYR SUBCUT SCH (23:27)
[2023-06-13] VITALS (24 sets, daily range): BP systolic 80–132; BP diastolic 27–68; PULSE 55–70; RESP 15–25; TEMP 98–98.9; O2SAT 98–100
[2023-06-13] MEDS: IPRATROPIUM/ALBUTEROL 0.5-3(2.5)MG/3ML NEB HHN SCH ×3 (02:17→14:09)
[2023-06-13] MEDS: SODIUM CHLORIDE 3% FOR INH 4ML UD NEB INH SCH ×2 (07:56→14:09)
[2023-06-13] MEDS: INSULIN LISPRO 100 UNITS/ML SUBCUT SCH ×2 (08:00→12:02)
[2023-06-13] MEDS: BLOOD SUGAR DIAGNOSTIC STRIP TEST SCH ×2 (08:33→12:02)
[2023-06-13] MEDS: PANTOPRAZOLE SODIUM 40 MG/VIAL IV SCH (08:34)
[2023-06-13] MEDS: GABAPENTIN 100MG CAPSULE PO SCH ×2 (08:35→16:29)
[2023-06-13] MEDS: DOXYCYCLINE HYCLATE 100MG CAPSULE PO SCH (08:35)
[2023-06-13] MEDS: MIDODRINE HCL 5MG TABLET PO SCH ×3 (08:35→16:29)
[2023-06-13] MEDS: AMIODARONE HCL 200 MG TABLET PO SCH (08:36)
[2023-06-13] MEDS: PIPERACILLIN/TAZOBACTAM 3.375 G in DEXTROSE 5% WATER 50 ML IV SCH (09:00)
[2023-06-13] MEDS ORDERED: AMIODARONE HCL 200 MG TABLET PO SCH (11:45)
== END 2023-06-13 18:00 | DRG 871 ==
LOC: ER 09:14 → MICUSO 13:18 → 5EST 06-11 15:24
PROVIDERS: ADMIT Internal Medicine; ATTEND Internal Medicine
PROC: 5A1935Z Respiratory Ventilation, Less than 24 Consecutive Hours (ICD-10-PCS; principal; 2023-06-03)
PROC: 0BH17EZ Insertion of Endotracheal Airway into Trachea, Via Natural or Artificial Opening (ICD-10-PCS; 2023-06-03)
PROC: 02HV33Z Insertion of Infusion Device into Superior Vena Cava, Percutaneous Approach (ICD-10-PCS; 2023-06-03)
PROC: B548ZZA Ultrasonography of Superior Vena Cava, Guidance (ICD-10-PCS; 2023-06-03)
PROC: 5A09357 Assistance with Respiratory Ventilation, Less than 24 Consecutive Hours, Continuous Positive Airway Pressure (ICD-10-PCS; 2023-06-06)
PROC: 5A09357 Assistance with Respiratory Ventilation, Less than 24 Consecutive Hours, Continuous Positive Airway Pressure (ICD-10-PCS; 2023-06-08)
PROC: 5A1D70Z Performance of Urinary Filtration, Intermittent, Less than 6 Hours Per Day (ICD-10-PCS; 2023-06-09)
PROC: 5A1D70Z Performance of Urinary Filtration, Intermittent, Less than 6 Hours Per Day (ICD-10-PCS; 2023-06-11)
DX: A41.9 Sepsis, unspecified organism (principal); G93.41 Metabolic encephalopathy; I50.33 Acute on chronic diastolic (congestive) heart failure; J96.01 Acute respiratory failure with hypoxia; J96.02 Acute respiratory failure with hypercapnia; N18.6 End stage renal disease; I21.A1 Myocardial infarction type 2; J18.9 Pneumonia, unspecified organism; I13.2 Hypertensive heart and chronic kidney disease with heart failure and with stage 5 chronic kidney disease, or end stage renal disease; J44.0 Chronic obstructive pulmonary disease with (acute) lower respiratory infection; R57.9 Shock, unspecified; I48.92 Unspecified atrial flutter; E11.22 Type 2 diabetes mellitus with diabetic chronic kidney disease; G47.33 Obstructive sleep apnea (adult) (pediatric); I25.10 Atherosclerotic heart disease of native coronary artery without angina pectoris; D53.9 Nutritional anemia, unspecified; I48.0 Paroxysmal atrial fibrillation; K21.9 Gastro-esophageal reflux disease without esophagitis; E87.6 Hypokalemia; I49.3 Ventricular premature depolarization; Z78.1 Physical restraint status; Z86.73 Personal history of transient ischemic attack (TIA), and cerebral infarction without residual deficits; Z99.2 Dependence on renal dialysis
CPT/HCPCS: 31500; 36415; 36573; 36600; 71045; 71275; 80048; 80053; 80202; 80305; 80320; 82375; 82805; 82962; 83036; 83605; 83735; 83880; 84100; 84145; 84484; 85025; 86705; 86709; 86803; 87070; 87340; 87493; 90935; 93005; 93306; 94002; 94640; 94660; 94667; 97162; 99291; A6261; C1725; C9113; J0282; J1644; J1650; J1815; J2370; J2543; J2704; J3010; J3370; J3480; J3490; J7060; J7608; G0480